=== PATIENT | male | born 1970 | race American Indian/Alaskan Native ===

== ENCOUNTER 2018-04-28 18:36 | Inpatient (IN) | payer OTHER ==
[~2018-04-28] VITALS: Ht 167.6 cm; Wt 59.6 kg
[2018-04-28 20:05] LABS: ABSOLUTE BASOPHIL COUNT 0 /CUMM (0.0-0.2); ABSOLUTE EOSINOPHIL COUNT 0 /CUMM (0.0-0.7); ABSOLUTE GRANULOCYTE CT 5.2 /CUMM (1.4-6.5); ABSOLUTE LYMPH COUNT 1.4 /CUMM (1.2-3.4); ABSOLUTE MONOCYTE COUNT 0.4 /CUMM (0.10-0.60); BASOPHIL % 0.2 % (0.0-2.0); EOSINOPHIL % 0.3 % (0-5); GRANULOCYTE % 73.4 % (42.2-75.2); HEMATOCRIT 35.5 % (42-52); MEAN CORPUSCULAR HGB CONC 33.1 G/DL (33.0-37.0); MEAN CORPUSCULAR VOLUME 96.7 FL (80.0-94.0); PLATELET COUNT 82 /CUMM (130-400); RBC DISTRIBUTION WIDTH 16.6 % (11.5-14.5); RED BLOOD CELL CT 3.67 /CUMM (4.70-6.10); WHITE BLOOD CELL COUNT 7.1 /CUMM (4.8-10.8)
[2018-04-28] MEDS ORDERED: PANTOPRAZOLE SO40 M1 PO (20:05)
[2018-04-28] MEDS ORDERED: SYNTHROID175 MCG PO (20:06)
[2018-04-28] MEDS ORDERED: THERAPEUTIC-M1 EAC2 PO (20:06)
[2018-04-28] MEDS ORDERED: VITAMIN B-150 M1 PO (20:13)
[2018-04-28 20:18] LABS: PTT 41 SEC (25-37)
--- NOTE | 2018-04-28 22:18 | CT SCAN REPORT ---
EXAMINATION: CT ABDOMEN AND PELVIS WITH CONTRAST CLINICAL INFORMATION: Hepatitis C. Alcoholism with abdominal pain. COMPARISON: None TECHNIQUE: Multidetector volumetric imaging was performed of the abdomen and pelvis following IV administration of 95 mL of Optiray 320 intravenous contrast. Sagittal and coronal reformatted images were obtained on the technologist's workstation. DLP: 296.5 mGy-cm FINDINGS: LUNG BASES: The visualized lung bases are unremarkable. LIVER, GALLBLADDER, AND BILIARY TREE: Relative hypoattenuation of the hepatic parenchyma is consistent with steatosis. More focal areas of hypoattenuation around the gallbladder fossa are consistent with more pronounced steatosis. No suspicious lesions are identified. There is relative heterogeneous enhancement of the hepatic parenchyma which is likely due to underlying hepatocellular disease. No significant capsular nodularity is appreciated. The liver measures 20 cm craniocaudal, borderline enlarged. No biliary ductal dilatation. The gallbladder is unremarkable with no evidence of radiopaque gallstones, gallbladder wall thickening, or obvious pericholecystic inflammatory changes. PANCREAS: Unremarkable. SPLEEN: Unremarkable. ADRENAL GLANDS: Unremarkable. KIDNEYS AND URETERS: The kidneys are normal in size, shape, and attenuation. No hydronephrosis or hydroureter. A 4 mm calculus is present in a calyx at the left upper pole. No additional calculi. No perinephric stranding. BLADDER: Unremarkable. GASTROINTESTINAL TRACT: Stomach, small bowel, and colon are normal in caliber. Bowel wall thickening is present within the colon diffusely, most pronounced in the cecum, ascending colon, and proximal transverse colon. There is associated mural hypoattenuation and surrounding fat stranding. A small to moderate volume of intraperitoneal free fluid is present in the right upper quadrant in the perihepatic location. A small volume of free fluid is present along the right paracolic gutter and central pelvis. This fluid appears relatively simple with neither an enhancing rim nor with significant internal debris. No intraperitoneal free air. Hyperenhancement of the gastric mucosa is noted. ABDOMINAL WALL: No significant hernia is appreciated. LYMPH NODES: Normal. VASCULAR: Abdominal aorta and its branch vessels are patent and normal in caliber. The portal vasculature is patent without significant collaterals. PELVIC VISCERA: The prostate and seminal vesicles are unremarkable. OSSEOUS STRUCTURES: Mild/moderate multilevel degenerative disc disease present in the lumbar spine. No fracture or malalignment. There is mild osteophyte arthritis in the hips. IMPRESSION: 1. Hepatic hypoattenuation with heterogeneous enhancement, consistent with hepatic steatosis and underlying hepatocellular disease. Ill-defined regions of hypoattenuation around the gallbladder fossa most likely correspond to areas of more pronounced focal fatty infiltration. History of hepatitis C infection, consider follow-up MRI with and without contrast for more definitive characterization on a nonemergent basis. 2. Small glqyf-ox-uaupunya volume of simple appearing intraperitoneal free fluid, most notably in a perihepatic and central pelvic distribution confidentially due to portal hypertension. 3. Diffuse colonic wall thickening, most pronounced the right hemicolon, potentially due to portal hypertension. Infectious colitis or spontaneous bacterial peritonitis can also produce this appearance.
--- NOTE | 2018-04-28 22:29 | ED GENERAL ADULT ---
History of Present Illness General Chief Complaint: General Adult Stated Complaint: "I FEEL LIKE MY BODY SHUTTING DOWN" Source: patient, family, old records, Epic Exam Limitations: no limitations Vital Signs & Intake/Output Vital Signs & Intake/Output Vital Signs Date Time Temp Pulse Resp B/P B/P Pulse O2 O2 Flow FiO2 Mean Ox Delivery Rate 04/29 0107 98.1 70 18 92/73 96 Room Air 04/29 0042 97.7 66 20 104/56 04/29 0041 97.7 66 20 104/56 99 Room Air 04/28 2240 98.5 68 18 103/70 04/28 2202 98.5 68 18 103/70 95 Room Air 04/28 1953 97 Room Air 04/28 1945 98.4 88 18 118/70 95 Room Air 04/28 1844 97.4 98 20 134/95 96 Room Air ED Intake and Output 04/29 0000 04/28 1200 Intake Total Output Total Balance Patient 130 lb Weight Allergies Coded Allergies: No Known Allergies (04/28/18) Reconcile Medications Levothyroxine Sodium (Synthroid) 175 MCG TABLET 1 TAB PO DAILY THYROID ( Reported) Multivit,Calc,Mins/Iron/Folic (Therapeutic-M Tablet) 9 MG IRON-400 MCG TABLET 1 TAB PO DAILY SUPPLEMENT (Reported) Pantoprazole Sodium 40 MG TABLET.DR 1 TAB PO DAILY GI (Reported) Thiamine HCl (Vitamin B-1) (Unknown Strength) TABLET (Unknown Dose) PO DAILY SUPPLEMENT (Reported) Triage Note: 47 YEAR OLD MALE TO ER WITH COMPLAINTS OF FEELING ILL, 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 STATES THAT HE ALSO GOES TO [facility] IN [place] AND IS SUPOSSED TO BE ON 100 MG A DAY BUT THEY HAVE NOT MEDICATED HIM IN 4 DAYS DUE TO HE HAD ETOH ON BOARD. PT WEEPY AT TRIAGE, ALSO STATES THAT HE HAS HEP C. Triage Nurses Notes Reviewed? yes Onset: Last week Duration: week(s):, constant, continues in ED Timing: recent history Injury Environment: home Severity: moderate, severe No Modifying Factors: none HPI: Patient presents with increasing abdominal distention dealing with his eyes decreased appetite weakness diarrhea and continued alcohol abuse. He denies fever chills chest pain cough shortness of breath nausea vomiting headache dysuria rash bleeding. Past History Travel History Traveled to [place] past 21 day No Medical History Any Pertinent Medical History? 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 No Review of Systems Review of Systems Constitutional: Reports: see HPI, malaise, weakness. EENTM: Reports: see HPI, icterus. Respiratory: Reports: no symptoms. Cardiovascular: Reports: no symptoms. GI: Reports: see HPI, bloating. Genitourinary: Reports: no symptoms. Musculoskeletal: Reports: no symptoms. Skin: Reports: see HPI. Neurological/Psychological: Reports: no symptoms. Hematologic/Endocrine: Reports: no symptoms. Immunologic/Allergic: Reports: no symptoms. All Other Systems: Reviewed and Negative Physical Exam Physical Exam General Appearance: alert, awake, anxious, mild distress Head: atraumatic, normal appearance Eyes: Bilateral: normal appearance, PERRL, EOMI. Ears, Nose, Throat: normal pharynx, normal ENT inspection, hearing grossly normal Neck: normal inspection, supple, full range of motion, no midline tenderness Respiratory: normal breath sounds, chest non-tender, no respiratory distress, quiet respiration, lungs clear Cardiovascular: regular rate/rhythm, normal peripheral pulses, norml femoral pulses equa Peripheral Pulses: 4+ carotid (R), 4+ carotid (L) Gastrointestinal: normal bowel sounds, soft, non-tender, abnormal bowel sounds, hepatomegaly Back: normal inspection, normal range of motion Extremities: normal inspection, normal capillary refill, normal range of motion, no edema Neurologic/Psych: no motor/sensory deficits, awake, alert, oriented x 3, normal gait, normal mood/affect, 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 Skin: intact, warm/dry Lymphatic: no anterior cervical charlene Core Measures ACS in differential dx? No CVA/TIA Diagnosis: No Sepsis Present: No Sepsis Focused Exam Completed? No Progress Differential Diagnoses I considered the following diagnoses in my evaluation of the patient: Alcohol intoxication cirrhosis peritonitis electrolyte abnormality Plan of Care: Orders Procedure Date/time Status Regular Diet 04/29 B Active PHOSPHORUS 04/29 0600 Active MAGNESIUM 04/29 0600 Active CBC WITHOUT DIFFERENTIAL 04/29 0600 Active BASIC ELECTROLYTES PLUS BUN&CR 04/29 0600 Active Seizure Precautions 04/29 0340 Active C.DIFFICILE 04/29 0226 Active Weight 04/29 0142 Active Vital Signs 04/29 0142 Active Teach/Educate 04/29 014 Active Pain Treatment and Response 04/29 014 Active Nutritional Intake, Monitor 04/29 014 Active Isolation 04/29 014 Active Intake & Output 04/29 014 Active Patient Care Conference 04/29 0142 Active Activity/Ambulation 04/29 014 Active US-LIMITED ABDOMEN 04/29 UNK Active CIWA 04/29 UNK Complete PSYCHIATRIC CONSULT 04/29 UNK Active Patient Data 04/28 2327 Active OXYGEN SETUP (GEN) 04/28 224 Active Saline Lock 04/28 224 Active Admit to inpatient 04/28 224 Active Vital Signs 04/28 2247 Active Activity/Ambulation 04/28 224 Active Code Status 04/28 2247 Active TOTAL TRIODOTHYROXINE 04/28 1954 Complete FREE T4 04/28 1954 Complete Intake & Output 04/28 1953 Active CIWA 04/28 1929 Active URINE DRUG SCREEN FOR ER ONLY 04/28 1929 Complete URINALYSIS 04/28 1929 Complete TSH REFLEX 04/28 1929 Complete PARTIAL THROMBOPLASTIN TIME 04/28 1929 Complete PROTHROMBIN TIME 04/28 1929 Complete AMMONIA 04/28 1929 Complete ETHANOL 04/28 1929 Complete COMPREHENSIVE METABOLIC PANEL 04/28 1929 Complete CBC WITHOUT DIFFERENTIAL 04/28 1929 Complete Current Medications Sig/Michelle Start time Last Medication Dose Stop Time Status Admin Multivitamins 1 TAB DAILY 04/29 0900 AC (Theragran Vitamins) Levothyroxine Sodium 0.175 MG DAILY AC 04/29 0700 UNVr (Synthroid) Ondansetron HCl 4 MG Q6P PRN 04/29 0400 AC (Zofran) Cyanocobalamin/ 1 BAG DAILY 04/29 0300 AC 04/29 Thiamine/Pyridoxine 0328 (Vitamin in I.V.) Dextrose/Water 1,000 ML (D5W 1000) Lactulose 20 GM BID 04/29 0200 AC (Enulose 20GM/30ML) Laboratory Tests 04/28/181956: Urine Opiates Screen > 4000.00 H, Methadone Screen > 735 H, Barbiturate Screen < 60, Ur Phencyclidine Scrn 6.30, Amphetamines Screen < 100, U Benzodiazepines Scrn < 85, Urine Cocaine Screen < 50, Urine Cannabis Screen > 80.00 H, Urine Color YEL, Urine Clarity CLEAR, Urine pH 7.0, Ur Specific [place] <= 1.005, Urine Protein NEG, Urine Ketones NEG, Urine Nitrite NEG, Urine Bilirubin NEG, Urine Urobilinogen 2.0 H, Ur Leukocyte Esterase NEG, Ur Microscopic EXAM NOT REQUIRED, Urine Hemoglobin NEG, Urine Glucose NEG 04/28/181953: Anion Gap 8, Estimated GFR > 60, BUN/Creatinine Ratio 5.0 L, Glucose 69, Calcium 7.4 L, Total Bilirubin 2.0 H, AST 231 H, ALT 76 H, Alkaline Phosphatase 202 H, Ammonia 44 H, Total Protein 8.1, Albumin 3.5, Globulin 4.6 H, Albumin/Globulin Ratio 0.8 L, Free T4 0.73, Total T3 0.68 L, TSH &T3 &Free T4 Intrp 44.900 H, PT 19.0 H, INR 1.73 H, APTT 41 H, CBC w Diff NO MAN DIFF REQ, RBC 3.67 L, MCV 96.7 H, MCH 32.0 H, MCHC 33.1, RDW 16.6 H, MPV 9.0, Gran % 73.4, Lymphocytes % 20.2 L, Monocytes % 5.9, Eosinophils % 0.3, Basophils % 0.2, Absolute Granulocytes 5.2, Absolute Lymphocytes 1.4, Absolute Monocytes 0.4, Absolute Eosinophils 0, Absolute Basophils 0, Serum Alcohol 262.0 Microbiology 04/29 226 STOOL: Clostridium difficile Toxin A & B - COLB Diagnostic Imaging: Viewed by Me: CT Scan. Discussed w/RAD: CT Scan. Radiology Impression: 1. Hepatic hypoattenuation with heterogeneous enhancement, consistent with hepatic steatosis and underlying hepatocellular disease. Ill- defined regions of hypoattenuation around the gallbladder fossa most likely correspond to areas of more pronounced focal fatty infiltration. History of hepatitis C infection, consider follow-up MRI with and without contrast for more definitive characterization on a nonemergent basis. 2. Small [id number]-[id number] volume of simple appearing intraperitoneal free fluid, most notably in a perihepatic and central pelvic distribution confidentially due to portal hypertension. 3. Diffuse colonic wall thickening, most pronounced the right hemicolon, potentially due to portal hypertension. Infectious colitis or spontaneous bacterial peritonitis can also produce this appearance. Initial ED EKG: none Departure Departure Time of Disposition: 2247 Disposition: STILL A PATIENT Condition: Fair Clinical Impression Primary Impression: Hypothyroidism in adult Secondary Impressions: Alcohol dependence with intoxication, Hepatitis C virus infection, Hyperammonemia, Hypocalcemia Referrals: Unknown (PCP/Family) Departure Forms: Customer Survey General Discharge Information Admission Note Spoke With: Buck Lopez MD Documentation of Exam: Documentation of any treatments & extenuating circumstances including Concerns Regarding Discharge (functional status, medication knowledge or non-compliance, living conditions, etc.) that warrant an admission rather than observation: GI evaluation endocrinology evaluation serial lab exam electrolyte repletion serial CIWA medication adjustment physical therapy continuing care discharge planning Critical Care Note Critical Care Note Critical Care Time: non-applicable
[2018-04-28 22:40] VITALS: BP 103/70
[2018-04-29] VITALS (7 sets, daily range): BP systolic 92–162; BP diastolic 56–82
--- NOTE | 2018-04-29 00:13 | History & Physical ---
Artie LITTLE,Yony 04/29/18 0013: General Information and HPI Statement: I have seen and personally examined MARGARITO HOLDEN and documented this H&P. The patient is a 47 year old M who presented with a patient stated chief complaint of ["I FEEL LIKE MY BODY SHUTTING DOWN"]. Source of Information: patient, family, old records Exam Limitations: no limitations History of Present Illness: Patient is a 47-year-old male presented with chief complaints of"I FEEL LIKE MY BODY SHUTTING DOWN". Patient is having history of substance use disorder including alcohol, opioid, heroine, methadone, cocaine and was following the [employer] [facility]. His last drink was just before arrival. He was also complaining of distention abdomen, yellow discoloration of the eye and generalized weakness. He was not given methadone since 4 days because he was drinking alcohol. He is on 100 mg of methadone daily. Alcohol use history -he started drinking alcohol since 5 years as he was stressing out. He wanted to get rid of the all substance he used in the past including cocaine. He drinks around 1-2 pins of vodka daily. Recently his amount of alcohol intake has been increased. He underwent multiple detox with failed. He was admitted to the year and was told that his ammonia level is high in 2017, he had episode of seizure due to alcohol use in 2016. His last drink was early in the morning. He drank around one-pint of vodka. History of hepatitis C secondary to IV drug abuse-he was diagnosed as hepatitis C which affected his liver. He was not treated with Harvoni as he is continued to drink alcohol. He had upper GI endoscopy in the past but denies for any esophageal varices. Abdominal distention and generalized abdominal pain-since last 1-1/2 weeks he was complaining of pain in the belly associated with nausea and vomiting. It is constant in nature and worse by taking breath in and out. He denies any association with eating. He is also complaining of loose bowel movement around 4-5 times in a day. Occasionally he does see that in the stool. He denies for any weight loss. Hodgkin's lymphoma since childhood-he was treated with radiotherapy leading to loss of the muscle mass especially in the neck and the face. History of thyroidectomy -he was having difficulty in the swallowing and change in the voice so he was get evaluated at the year and was told that he was has had some cancer cells in the thyroid. He did had thyroidectomy in 1999. He was having hypothyroidism after that and currently on Synthyroid 175 mcg daily. He is noncompliant with the medication and has not been taken since last couple of days. History of Anal prolapse treated by the surgery. His primary care provider is at [facility]. History of smoking -he was smoking since last 30 years around 1-1/2 pack per day. He had multiple failed attempts to quit. He was incarcerated multiple times because of the rubbing and drug abuse. Allergies/Medications Allergies: Coded Allergies: No Known Allergies (04/28/18) Home Med list Levothyroxine Sodium (Synthroid) 175 MCG TABLET 1 TAB PO DAILY THYROID ( Reported) Multivit,Calc,Mins/Iron/Folic (Therapeutic-M Tablet) 9 MG IRON-400 MCG TABLET 1 TAB PO DAILY SUPPLEMENT (Reported) Pantoprazole Sodium 40 MG TABLET.DR 1 TAB PO DAILY GI (Reported) Thiamine HCl (Vitamin B-1) (Unknown Strength) TABLET (Unknown Dose) PO DAILY SUPPLEMENT (Reported) Past History Travel History Traveled to [place] past 21 day No Medical History Neurological: NONE EENT: NONE Cardiovascular: NONE Respiratory: NONE Gastrointestinal: GERD Hepatic: hepatitis C Musculoskeletal: NONE Psychiatric: alcohol dependence, opioid dependence Endocrine: hypothyroidism Blood Disorders: NONE Cancer(s): hodgkins lymphoma Surgical History Surgical History: none Past Family/Social History Psychosocial History ETOH Use: alcoholic Illicit Drug Use: denies illicit drug use, METHADONE PROGRAM Review of Systems Review of Systems Constitutional: Reports: no symptoms, malaise, weakness. Cardiovascular: Reports: no symptoms. Respiratory: Reports: no symptoms. GI: Reports: abdominal pain, bloating, diarrhea, distention, nausea, changes in stool, vomiting. Genitourinary: Reports: dysuria. Skin: Reports: jaundice. Exam & Diagnostic Data Last 24 Hrs of Vital Signs/I&O Vital Signs Date Time Temp Pulse Resp B/P B/P Pulse O2 O2 Flow FiO2 Mean Ox Delivery Rate 04/29 0107 98.1 70 18 92/73 96 Room Air 04/29 0042 97.7 66 20 104/56 04/29 0041 97.7 66 20 104/56 99 Room Air 04/28 2240 98.5 68 18 103/70 04/28 2202 98.5 68 18 103/70 95 Room Air 04/28 1953 97 Room Air 04/28 194 98.4 88 18 118/70 95 Room Air 04/28 1844 97.4 98 20 134/95 96 Room Air Intake & Output 04/29 0800 04/29 0000 04/28 1600 Intake Total Output Total Balance Patient 58.967 kg Weight Physical Exam General Appearance Alert, Oriented X3, Cooperative Skin No Rashes, No Breakdown Neck Supple, No JVD Cardiovascular Normal S1, Normal S2 Lungs Clear to Auscultation, Normal Air Movement Abdomen diatended, tender generalized, palpable and tender hepatomegaly Neurological Normal Speech Extremities mild bilateral lower leg edema Vascular Normal Pulses, Pulses Symmetrical Last 24 Hrs of Labs/Iain: Laboratory Tests 04/28/181956: Urine Opiates Screen > 4000.00 H, Methadone Screen > 735 H, Barbiturate Screen < 60, Ur Phencyclidine Scrn 6.30, Amphetamines Screen < 100, U Benzodiazepines Scrn < 85, Urine Cocaine Screen < 50, Urine Cannabis Screen > 80.00 H, Urine Color YEL, Urine Clarity CLEAR, Urine pH 7.0, Ur Specific [place] <= 1.005, Urine Protein NEG, Urine Ketones NEG, Urine Nitrite NEG, Urine Bilirubin NEG, Urine Urobilinogen 2.0 H, Ur Leukocyte Esterase NEG, Ur Microscopic EXAM NOT REQUIRED, Urine Hemoglobin NEG, Urine Glucose NEG 04/28/181953: Anion Gap 8, Estimated GFR > 60, BUN/Creatinine Ratio 5.0 L, Glucose 69, Calcium 7.4 L, Total Bilirubin 2.0 H, AST 231 H, ALT 76 H, Alkaline Phosphatase 202 H, Ammonia 44 H, Total Protein 8.1, Albumin 3.5, Globulin 4.6 H, Albumin/Globulin Ratio 0.8 L, Free T4 0.73, Total T3 0.68 L, TSH &T3 &Free T4 Intrp 44.900 H, PT 19.0 H, INR 1.73 H, APTT 41 H, CBC w Diff NO MAN DIFF REQ, RBC 3.67 L, MCV 96.7 H, MCH 32.0 H, MCHC 33.1, RDW 16.6 H, MPV 9.0, Gran % 73.4, Lymphocytes % 20.2 L, Monocytes % 5.9, Eosinophils % 0.3, Basophils % 0.2, Absolute Granulocytes 5.2, Absolute Lymphocytes 1.4, Absolute Monocytes 0.4, Absolute Eosinophils 0, Absolute Basophils 0, Serum Alcohol 262.0 Assessment/Plan Assessment: Patient is a 47-year-old male presented with chief complaints of"I FEEL LIKE MY BODY SHUTTING DOWN". Blood workup-hemoglobin 11.7, hematocrit 35.5, platelet count 82,000, MCV 96.7, serum sodium 140, potassium 3.4, chloride 99, [id number], anion gap 8, BUN 3, creatinine 0.6, glucose 69, calcium 7.4, total bilirubin 2.0, AST 231, ALT 76 , alkaline phosphatase 202, ammonia 44, TSH 44.90, total T3 0.68, urine analysis -ketones negative, U tox-opiates, methadone, cannabis positive. Serum alcohol level 262. CT scan of abdomen and pelvis- 1. Hepatic hypoattenuation with heterogeneous enhancement, consistent with hepatic steatosis and underlying hepatocellular disease. Ill-defined regions of hypoattenuation around the gallbladder fossa most likely correspond to areas of more pronounced focal fatty infiltration. History of hepatitis C infection, consider follow-up MRI with and without contrast for more definitive characterization on a nonemergent basis. 2. Small [id number] volume of simple appearing intraperitoneal free fluid , most notably in a perihepatic and central pelvic distribution confidentially due to portal hypertension. 3. Diffuse colonic wall thickening, most pronounced the right hemicolon, potentially due to portal hypertension. Infectious colitis or spontaneous bacterial peritonitis can also produce this appearance. Problem list - Substance use disorder - alcohol Decompensated cirrhosis along with ascites, portal hypertension, high ammonia level, evidence of hepatocellular disease on the CT scan of the abdomen History of alcohol use disorder, alcoholic hepatitis, hepatic steatosis History of untreated hep C Severe hypothyroidism Normocytic anemia Thrombocytopenia Hypokalemia -3.4 Metabolic alkalosis-diarrhea should be ruled out. Assessment and plan- * We will admit the patient to general medicine floor * We will obtain GI consult for future management and plan * We should think about paracentesis if needed to rule out SBP * Right upper quadrant ultrasound to rule out any GB stone * Psychiatric consult for substance use disorder * CIWA * Ativan according to the sliding scale * stool fo C diff * Patient was on Synthyroid 175 mcg,continue same dose. We will plan to check the TSH after 48 hours. * We will obtain endocrinology consult for further evaluation and management. * We will obtain psychiatric consult for further evaluation and management * We supplemented potassium. Will follow magnesium and phosphorus * Please get the records from the [facility] * Please confirm from the [facility] about the methadone dose * CODE STATUS-full code * DVT prophylaxis-ALP S, do not use heparin as the patient has thrombocytopenia * Diet-regular diet with low-sodium As Ranked By This Provider Problem List: 1. Alcohol dependence with intoxication 2. Hyperammonemia 3. Hepatitis C virus infection 4. Hypothyroidism in adult Core Measures/Misc (05/02) Acute Coronary Syndrome ACS Diagnosis: No Congestive Heart Failure Congestive Heart Failure Diagnosis No Cerebrovascular Accident CVA/TIA Diagnosis: No VTE (View Protocol) VTE Risk Factors Age>40 No Mechanical VTE Prophylaxis d/t N/A MechProphylax Ordered No VTE Pharm Prophylaxis d/t Other Comment: low platelet Sepsis (View protocol) Sepsis Present: No If YES complete Sepsis Event Note If YES complete Sepsis Event Note Jessica LITTLE,Buck 04/29/18 0338: Core Measures/Misc (05/02) Sepsis (View protocol) If YES complete Sepsis Event Note If YES complete Sepsis Event Note Attending MD Review Statement Attending Statement Attending MD Statement: examined this patient, discuss w/resident/PA/CHARGE ACCOUNT CLERK, agreed w/resident/PA/CHARGE ACCOUNT CLERK, discussed with family, reviewed EMR data (avail), discussed with nursing, amended to note Attending Assessment/Plan: Patient seen and examined. Medical history and examination is as documented by the medical practice manager above. He has quite a number of issues going on. His complaints of malaise appears to be secondary to his severe hypothyroidism. He admits noncompliance with his medication regimen. we'll continue him on Synthroid 175 g daily and follow-up with endocrinology service. He complains of abdominal discomfort predominantly in the right upper quadrant. These may be related to his transaminitis most likely alcohol induced. . Reports loose stools on occasion however sometimes he states that when he goes to the bathroom is unable to move his bowels. CT scan is suggestive of possible colitis. He is afebrile. He has no leukocytosis. CT scan also shows evidence of small to moderate sinusitis. On examination abdomen is tender predominantly in the right upper quadrant. There is no rebound. There is no guarding. Severe hepatomegaly. Again he has no other clinical evidence of an infectious process present making SBP less likely within the differential. If diarrhea and cramping persists consider GI consultation. Confirm Methadone regimen before resuming. I agree with the management plan as outlined by the resident above.
--- NOTE | 2018-04-29 03:38 | Admission Certification ---
Admission Certification Certification Statement - As attending physician, I certify that at the time of - admission, based on clinical presentation, severity of - symptoms, need for further diagnostic testing and - therapeutic interventions, and risk of adverse outcomes - without in-hospital treatment, in my clinical assessment, - this patient requires an acute hospital stay for a minimum - of two nights or longer. I have also considered psychsocial - factors such as support system, advanced age, financial - issues, cognitive issues, and failed out-patient treatments, - past re-admission history, safety of patient, and lack of - compliance as applicable. Specific rationale supporting this admission is: Patient is being hospitalized for further management of his abdominal pain and hypothyroidism
[2018-04-29 07:52] LABS: ABSOLUTE BASOPHIL COUNT 0 /CUMM (0.0-0.2); ABSOLUTE EOSINOPHIL COUNT 0.1 /CUMM (0.0-0.7); ABSOLUTE LYMPH COUNT 1.4 /CUMM (1.2-3.4); ABSOLUTE MONOCYTE COUNT 0.4 /CUMM (0.10-0.60); BASOPHIL % 0.6 % (0.0-2.0); EOSINOPHIL % 0.9 % (0-5); GRANULOCYTE % 68.9 % (42.2-75.2); HEMATOCRIT 36.3 % (42-52); MEAN CORPUSCULAR HGB 32.7 PG (27.0-31.0); MEAN CORPUSCULAR HGB CONC 33.6 G/DL (33.0-37.0); MEAN CORPUSCULAR VOLUME 97.1 FL (80.0-94.0); MEAN PLATELET VOLUME 9.5 FL (7.4-10.4); RBC DISTRIBUTION WIDTH 16.9 % (11.5-14.5); RED BLOOD CELL CT 3.74 /CUMM (4.70-6.10); WHITE BLOOD CELL COUNT 5.8 /CUMM (4.8-10.8)
[2018-04-29 09:06] LABS: PLATELET COUNT 82 /CUMM (130-400)
--- NOTE | 2018-04-29 13:08 | ULTRASOUND REPORT ---
EXAMINATION: US ABDOMEN LIMITED CLINICAL INFORMATION: Alcoholic hepatitis. Evaluate for gallstone. COMPARISON: CT abdomen and pelvis, 04/28/2018 TECHNIQUE: Real-time imaging of the right upper quadrant abdominal viscera. FINDINGS: PANCREAS: The majority of the pancreas is obscured by bowel gas. Visualized portion of the pancreatic head is normal. LIVER: Liver parenchyma is diffusely hyperechoic and there is slightly nodular contour of the liver surface. No evidence of focal hepatic lesion or intrahepatic bile duct dilatation. GALLBLADDER: Gallbladder is moderately distended and contains minimal, mobile sludge. No cholelithiasis. No gallbladder wall edema. COMMON BILE DUCT: Normal in caliber measuring 0.3 cm in diameter. RIGHT KIDNEY: Normal. No hydronephrosis. No renal calculi or focal parenchymal lesions. The kidney measures 9.7 cm in maximum dimension. FREE FLUID: Small amount of ascitic fluid is seen in the upper abdomen IMPRESSION: - Liver is diffusely hyperechoic from steatosis or steatohepatitis, and the liver contour is slightly nodular, which raises suspicion for cirrhosis. However, no focal lesions are seen. - Gallbladder contains minimal, mobile sludge. - Ascites
--- NOTE | 2018-04-29 13:30 | PN- Att Addend ---
Attending Addendum Attending Brief Note S: The patient was seen and chart reviewed. Still with nausea/vomiting and abdominal pain. Received Ativan 0.5 mg IV this morning per nursing. O: Vital Signs Date Time Temp Pulse Resp B/P B/P Pulse O2 O2 Flow FiO2 Mean Ox Delivery Rate 04/29 0645 98.2 67 18 102/65 96 Room Air Current Medications Sig/Michelle Start time Last Medication Dose Route Stop Time Status Admin Calcium Gluconate 0 .STK-MED ONE 04/29 0001 DC IV Calcium Gluconate 1 GM ONCE ONE 04/28 2300 DC 04/29 Sodium Chloride 100 ML IV 04/28 2359 0003 Cyanocobalamin/ 1 BAG DAILY 04/30 0900 AC Thiamine/Pyridoxine IV Dextrose/Water 1,000 ML Cyanocobalamin/ 1 BAG DAILY 04/29 0300 DC 04/29 Thiamine/Pyridoxine IV 0328 Dextrose/Water 1,000 ML Dicyclomine HCl 20 MG 4 TIMES/DAY PRN 04/29 1245 AC PO Lactulose 20 GM BID 04/29 0200 AC 04/29 PO 0805 Levothyroxine Sodium 0.125 MG DAILY AC 04/29 0700 DC PO Levothyroxine Sodium 0.2 MG DAILY AC 04/29 0700 DC PO Levothyroxine Sodium 0.175 MG DAILY AC 04/29 0700 AC 04/29 PO 0903 Levothyroxine Sodium 200 MCG ONCE ONE 04/28 2300 DC 04/28 IV 04/28 2301 2356 Lorazepam 1 MG Q6 04/29 1200 AC 04/29 PO 1210 Lorazepam 0 Q1P PRN 04/29 0815 AC 04/29 IV 0851 Magnesium Sulfate 1 GM Q2H 04/29 0915 DC 04/29 Dextrose/Water 100 ML IV 04/29 1314 1211 Multivitamins 1 TAB DAILY 04/29 0900 AC 04/29 PO 0805 Omeprazole 40 MG DAILY AC 04/29 1022 AC 04/29 PO 1210 Ondansetron HCl 4 MG Q6P PRN 04/29 0400 AC 04/29 PO 1226 Potassium Chloride 40 MEQ ONCE ONE 04/29 1300 DC PO 04/29 1301 Potassium Chloride 0 .STK-MED ONE 04/29 0458 DC PO Potassium Chloride 40 MEQ ONCE ONE 04/29 0130 DC 04/29 PO 04/29 0131 0602 Thiamine HCl 100 MG ONCE ONE 04/29 300 DC 04/29 Sodium Chloride 50 ML IV 04/29 6899 0326 Physical Exam: HEENT: eyes- PERRLA raymond- moist mucosa Chest: clear Cor: RRR nl S1, S2 Abd: BS+, soft, mild generalized tenderness more epigastric/RUQ Ext: tr edema Labs/Tests: Laboratory Tests 04/29/18 0605: Anion Gap 10, Estimated GFR > 60, BUN/Creatinine Ratio 6.7 L, Phosphorus 4.2, Magnesium 0.7 *L, Total Bilirubin 1.6 H, Direct Bilirubin 0.9 H, AST 226 H, ALT 71, Alkaline Phosphatase 215 H, Total Protein 7.8, Albumin 3.4 L, Lipase 215, Free T4 1.41, CBC w Diff NO MAN DIFF REQ, RBC 3.74 L, MCV 97.1 H, MCH 32.7 H, MCHC 33.6, RDW 16.9 H, MPV 9.5, Gran % 68.9, Lymphocytes % 23.5, Monocytes % 6.1, Eosinophils % 0.9, Basophils % 0.6, Absolute Granulocytes 4.0, Absolute Lymphocytes 1.4, Absolute Monocytes 0.4, Absolute Eosinophils 0.1, Absolute Basophils 0, Acetaminophen < 10.0 L 04/28/181956: Urine Opiates Screen > 4000.00 H, Methadone Screen > 735 H, Barbiturate Screen < 60, Ur Phencyclidine Scrn 6.30, Amphetamines Screen < 100, U Benzodiazepines Scrn < 85, Urine Cocaine Screen < 50, Urine Cannabis Screen > 80.00 H, Urine Color YEL, Urine Clarity CLEAR, Urine pH 7.0, Ur Specific [place] <= 1.005, Urine Protein NEG, Urine Ketones NEG, Urine Nitrite NEG, Urine Bilirubin NEG, Urine Urobilinogen 2.0 H, Ur Leukocyte Esterase NEG, Ur Microscopic EXAM NOT REQUIRED, Urine Hemoglobin NEG, Urine Glucose NEG 04/28/181953: Anion Gap 8, Estimated GFR > 60, BUN/Creatinine Ratio 5.0 L, Glucose 69, Calcium 7.4 L, Total Bilirubin 2.0 H, AST 231 H, ALT 76 H, Alkaline Phosphatase 202 H, Ammonia 44 H, Total Protein 8.1, Albumin 3.5, Globulin 4.6 H, Albumin/Globulin Ratio 0.8 L, Free T4 0.73, Total T3 0.68 L, TSH &T3 &Free T4 Intrp 44.900 H, PT 19.0 H, INR 1.73 H, APTT 41 H, CBC w Diff NO MAN DIFF REQ, RBC 3.67 L, MCV 96.7 H, MCH 32.0 H, MCHC 33.1, RDW 16.6 H, MPV 9.0, Gran % 73.4, Lymphocytes % 20.2 L, Monocytes % 5.9, Eosinophils % 0.3, Basophils % 0.2, Absolute Granulocytes 5.2, Absolute Lymphocytes 1.4, Absolute Monocytes 0.4, Absolute Eosinophils 0, Absolute Basophils 0, Serum Alcohol 262.0 Microbiology 04/29 0850 STOOL: Clostridium difficile Toxin A & B - COMP Abdominal US: IMPRESSION: - Liver is diffusely hyperechoic from steatosis or steatohepatitis, and the liver contour is slightly nodular, which raises suspicion for cirrhosis. However, no focal lesions are seen. - Gallbladder contains minimal, mobile sludge. - Ascites Impression/Plan: #Abdominal Pain- most likely multifactorial due to alcoholic gastritis, hepatitis (alcoholic and Hep C), ascites. Admit team felt not likely to be SBP, however cannot exclude. Plan: Agree with treatment of gastritis/etc. and follow. GI input regarding potential paracentesis. Lipase/amylase added to admit labs. Trend LFT's. #Gastritis- as above, the patient presents with vomiting, etc. Plan: PPI as noted. Zofran for nausea, will follow. #EtOH/Opioid Withdrawal- the admit note suggested restart Methadone, however the patient was discharged from his Methadone clinic 04/24 and thus unable to return. He has been off of Methadone since 04/24, so no need for taper. Suspect with positive urine that he has taken street opioids. Plan: No Methadone. Would treat with usual withdrawal meds- Ativan/MVI/Thiamine/ folate for EtOH and Clonidine, Bentyl Hydroxyzine, Baclofen for opioids. #Cirrhosis/Hep C/Abnormal LFT's- abd US showing some sludge in GP. No encephalopathy noted. Most likely secondary to EtOH hepatitis. Plan: Would trend LFT's. As above, consider paracentesis depending on GI follow- up. #Hypomagnesemia- secondary to poor nutrition. Plan: Replete and follow. #Hypothyroid- secondary to prior thyroidectomy for ca. Has been non-compliant. Not contributing to current symptoms. Plan: Would start his usual dose Levothyroxine 175 mcg daily and check Free T4. Would re-check Free T4 in 4-5 days and f/u TSH in 6 weeks. #Anemia/Thrombocytopenia- secondary to alcohol. No clinical bleeding at present. Plan: Will trend H/H and count. No heparin/Lovenox.
--- NOTE | 2018-04-29 17:13 | Event Note ---
Event Note Event Note: pt has supratherapeutic INR and thrombocytopenia will do ALP no heparin
--- NOTE | 2018-04-29 19:16 | Cons- Gastroenterology ---
General Information and HPI Consulting Request Date of Consult: 04/29/18 Requested By: Pj Del Cid MD Reason for Consult: Liver disease Abdominal pain Allergies/Medications Allergies: Coded Allergies: No Known Allergies (04/28/18) Home Med List: Levothyroxine Sodium (Synthroid) 175 MCG TABLET 1 TAB PO DAILY THYROID ( Reported) Multivit,Calc,Mins/Iron/Folic (Therapeutic-M Tablet) 9 MG IRON-400 MCG TABLET 1 TAB PO DAILY SUPPLEMENT (Reported) Pantoprazole Sodium 40 MG TABLET.DR 1 TAB PO DAILY GI (Reported) Thiamine HCl (Vitamin B-1) (Unknown Strength) TABLET (Unknown Dose) PO DAILY SUPPLEMENT (Reported) Current Medications: Current Medications Sig/Michelle Start time Last Medication Dose Route Stop Time Status Admin Calcium Gluconate 0 .STK-MED ONE 04/29 0001 DC IV Calcium Gluconate 1 GM ONCE ONE 04/28 2300 DC 04/29 Sodium Chloride 100 ML IV 04/28 2359 0003 Cyanocobalamin/ 1 BAG DAILY 04/30 0900 CAN Thiamine/Pyridoxine IV Dextrose/Water 1,000 ML Cyanocobalamin/ 1 BAG DAILY 04/29 0300 DC 04/29 Thiamine/Pyridoxine IV 0328 Dextrose/Water 1,000 ML Dicyclomine HCl 20 MG 4 TIMES/DAY PRN 04/29 1245 AC 04/29 PO 1713 Enoxaparin Sodium 40 MG DAILY 04/29 1434 DC SC Folic Acid 1 MG DAILY 04/29 1531 AC 04/29 PO 1712 Lactulose 20 GM BID 04/29 0200 DC 04/29 PO 0805 Levothyroxine Sodium 0.125 MG DAILY AC 04/29 0700 DC PO Levothyroxine Sodium 0.2 MG DAILY AC 04/29 0700 DC PO Levothyroxine Sodium 0.175 MG DAILY AC 04/29 0700 AC 04/29 PO 0903 Levothyroxine Sodium 200 MCG ONCE ONE 04/28 2300 DC 04/28 IV 04/28 2301 2356 Lorazepam 1 MG Q6 04/29 1200 AC 04/29 PO 1712 Lorazepam 0 Q1P PRN 04/29 0815 AC 04/29 IV 0851 Magnesium Sulfate 1 GM Q2H 04/29 0915 DC 04/29 Dextrose/Water 100 ML IV 04/29 1314 1442 Multivitamins 1 TAB DAILY 04/29 0900 AC 09/14 PO 0805 Omeprazole 40 MG DAILY AC 04/29 1022 AC 04/29 PO 1210 Ondansetron HCl 4 MG Q6P PRN 04/29 0400 AC 04/29 PO 1713 Potassium Chloride 40 MEQ ONCE ONE 04/29 1300 DC 04/29 PO 04/29 1301 1335 Potassium Chloride 0 .STK-MED ONE 04/29 0458 DC PO Potassium Chloride 40 MEQ ONCE ONE 04/29 0130 DC 04/29 PO 04/29 0131 0602 Thiamine HCl 100 MG DAILY 04/29 1531 AC 04/29 PO 1712 Thiamine HCl 100 MG ONCE ONE 04/29 0300 DC 04/29 Sodium Chloride 50 ML IV 04/29 3447 [id number] Past History Travel History Traveled to [place] past 21 day No Medical History Blood Transfusion Hx: No Neurological: NONE EENT: NONE Cardiovascular: NONE Respiratory: NONE Gastrointestinal: GERD Hepatic: hepatitis C Renal: NONE Musculoskeletal: NONE Psychiatric: alcohol dependence, opioid dependence Endocrine: hypothyroidism Blood Disorders: NONE Cancer(s): hodgkins lymphoma Surgical History Surgical History: 1 Psychosocial History Where Do You Live? 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 Exam & Diagnostic Data Vital Signs and I&O Vital Signs Date Time Temp Pulse Resp B/P B/P Pulse O2 O2 Flow FiO2 Mean Ox Delivery Rate 04/29 1350 98.4 67 20 102/68 97 Room Air 04/29 0645 98.2 67 18 102/65 96 Room Air 04/29 0107 98.1 70 18 92/73 96 Room Air 04/29 0042 97.7 66 20 104/56 04/29 0041 97.7 66 20 104/56 99 Room Air 04/28 2240 98.5 68 18 103/70 04/28 2202 98.5 68 18 103/70 95 Room Air 04/28 1953 97 Room Air 04/28 1945 98.4 88 18 118/70 95 Room Air Intake & Output 04/29 1600 04/29 0400 04/28 0400 04/27 1600 04/27 0400 Intake Total 1275 Output Total 350 Balance 925 Intake, IV 825 Intake, Oral 450 Number 1 Bowel Movements Output, Urine 350 Patient 135 lb 136 lb Weight Weight Bed scale Measurement Method Results Pertinent Lab Results: Laboratory Tests 04/29 04/29 04/29 1418 1400 0605 Chemistry Sodium (137 - 145 mmol/L) Cancelled 139 Potassium (3.5 - 5.1 mmol/L) Cancelled 3.6 Chloride (98 - 107 mmol/L) Cancelled 97 L Carbon Dioxide (22 - 30 mmol/L) Cancelled 33 H Anion Gap (5 - 16) Cancelled 10 BUN (9 - 20 mg/dL) Cancelled 4 L Creatinine (0.7 - 1.2 mg/dL) Cancelled 0.6 L Estimated GFR (>60 ml/min) > 60 BUN/Creatinine Ratio (7 - 25 %) Cancelled 6.7 L Phosphorus (2.5 - 4.5 mg/dL) 4.2 Magnesium (1.6 - 2.3 mg/dL) Cancelled 0.7 *L Total Bilirubin (0.2 - 1.3 mg/dL) 1.6 H Direct Bilirubin (< 0.4 mg/dL) 0.9 H AST (17 - 59 U/L) 226 H ALT (21 - 72 U/L) 71 Alkaline Phosphatase (< 127 U/L) 215 H Total Protein (6.3 - 8.2 g/dL) 7.8 Albumin (3.5 - 5.0 g/dL) 3.4 L Lipase (23 - 300 U/L) 215 Vitamin B12 (239 - 931 pg/mL) > 1000 H Folate (2.76 - 20.0 ng/mL) 6.2 Free T4 (0.64 - 1.79 ng/dL) 1.41 Hematology CBC w Diff NO MAN DIFF REQ WBC (4.8 - 10.8 /CUMM) 5.8 RBC (4.70 - 6.10 /CUMM) 3.74 L Hgb (14.0 - 18.0 G/DL) 12.2 L Hct (42 - 52 %) 36.3 L MCV (80.0 - 94.0 FL) 97.1 H MCH (27.0 - 31.0 PG) 32.7 H MCHC (33.0 - 37.0 G/DL) 33.6 RDW (11.5 - 14.5 %) 16.9 H Plt Count (130 - 400 /CUMM) 82 L MPV (7.4 - 10.4 FL) 9.5 Gran % (42.2 - 75.2 %) 68.9 Lymphocytes % (20.5 - 51.1 %) 23.5 Monocytes % (1.7 - 9.3 %) 6.1 Eosinophils % (0 - 5 %) 0.9 Basophils % (0.0 - 2.0 %) 0.6 Absolute Granulocytes (1.4 - 6.5 /CUMM) 4.0 Absolute Lymphocytes (1.2 - 3.4 /CUMM) 1.4 Absolute Monocytes (0.10 - 0.60 /CUMM) 0.4 Absolute Eosinophils (0.0 - 0.7 /CUMM) 0.1 Absolute Basophils (0.0 - 0.2 /CUMM) 0 Toxicology Acetaminophen (10.0 - 30.0 ug/mL) < 10.0 L 04/28 1957 Toxicology Urine Opiates Screen (>2000 NG/ML) > 4000.00 H Methadone Screen (>300 NG/ML) > 735 H Barbiturate Screen (>200 NG/ML) < 60 Ur Phencyclidine Scrn (>25 NG/ML) 6.30 Amphetamines Screen (>1000 NG/ML) < 100 U Benzodiazepines Scrn (>200 NG/ML) < 85 Urine Cocaine Screen (>300 NG/ML) < 50 Urine Cannabis Screen (>50 NG/ML) > 80.00 H Urines Urine Color (YEL,AMB,STR) YEL Urine Clarity (CLEAR) CLEAR Urine pH (5.0 - 8.0) 7.0 Ur Specific [place] (1.001 - 1.035) <= 1.005 Urine Protein (NEG,<30 MG/DL) NEG Urine Ketones (NEG) NEG Urine Nitrite (NEG) NEG Urine Bilirubin (NEG) NEG Urine Urobilinogen (0.1 - 1.0 EU/dl) 2.0 H Ur Leukocyte Esterase (NEG) NEG Ur Microscopic EXAM NOT REQUIRED Urine Hemoglobin (NEG) NEG Urine Glucose (N MG/DL) NEG 04/28 1954 Chemistry Sodium (137 - 145 mmol/L) 140 Potassium (3.5 - 5.1 mmol/L) 3.4 L Chloride (98 - 107 mmol/L) 99 Carbon Dioxide (22 - 30 mmol/L) 33 H Anion Gap (5 - 16) 8 BUN (9 - 20 mg/dL) 3 L Creatinine (0.7 - 1.2 mg/dL) 0.6 L Estimated GFR (>60 ml/min) > 60 BUN/Creatinine Ratio (7 - 25 %) 5.0 L Glucose (65 - 99 mg/dL) 69 Calcium (8.4 - 10.2 mg/dL) 7.4 L Total Bilirubin (0.2 - 1.3 mg/dL) 2.0 H AST (17 - 59 U/L) 231 H ALT (21 - 72 U/L) 76 H Alkaline Phosphatase (< 127 U/L) 202 H Ammonia (9 - 30 umol/L) 44 H Total Protein (6.3 - 8.2 g/dL) 8.1 Albumin (3.5 - 5.0 g/dL) 3.5 Globulin (1.9 - 4.2 gm/dL) 4.6 H Albumin/Globulin Ratio (1.1 - 2.2 %) 0.8 L Free T4 (0.64 - 1.79 ng/dL) 0.73 Total T3 (0.97 - 1.69 ng/mL) 0.68 L TSH &T3 &Free T4 Intrp (0.27 - 4.20 uIU/mL) 44.900 H Coagulation PT (9.4 - 12.5 SEC) 19.0 H INR (0.90 - 1.17) 1.73 H APTT (25 - 37 SEC) 41 H Hematology CBC w Diff NO MAN DIFF REQ WBC (4.8 - 10.8 /CUMM) 7.1 RBC (4.70 - 6.10 /CUMM) 3.67 L Hgb (14.0 - 18.0 G/DL) 11.7 L Hct (42 - 52 %) 35.5 L MCV (80.0 - 94.0 FL) 96.7 H MCH (27.0 - 31.0 PG) 32.0 H MCHC (33.0 - 37.0 G/DL) 33.1 RDW (11.5 - 14.5 %) 16.6 H Plt Count (130 - 400 /CUMM) 82 L MPV (7.4 - 10.4 FL) 9.0 Gran % (42.2 - 75.2 %) 73.4 Lymphocytes % (20.5 - 51.1 %) 20.2 L Monocytes % (1.7 - 9.3 %) 5.9 Eosinophils % (0 - 5 %) 0.3 Basophils % (0.0 - 2.0 %) 0.2 Absolute Granulocytes (1.4 - 6.5 /CUMM) 5.2 Absolute Lymphocytes (1.2 - 3.4 /CUMM) 1.4 Absolute Monocytes (0.10 - 0.60 /CUMM) 0.4 Absolute Eosinophils (0.0 - 0.7 /CUMM) 0 Absolute Basophils (0.0 - 0.2 /CUMM) 0 Toxicology Serum Alcohol (<10 MG/DL) 262.0 Imaging/Other Studies: 1. Clinical cirrhosis in this patient with alcohol abuse, substance abuse, and hepatitis C (thrombocytopenia, coagulopathy, ascites). Probable superimposed alcoholic hepatitis. 2. Abdominal distention/pain, likely secondary to ascites, and narcotic withdrawal. Rule out peritonitis, alcoholic gastritis, etc. Recommendations * Vitamin K 10 mg subcutaneous for 2 days, and follow INR * No corticosteroids at this time * Daily CBC, CMP * Magnesium repletion. Stop lactulose; resultant diarrhea will continue to contribute to hypomagnesemia. * Consideration for diagnostic paracentesis (discussed with radiology) Assessment/Plan Consult Acknowledgment - Thank you for your consult request.
[2018-04-30 07:34] VITALS: BP 101/68
[2018-04-30 08:00] VITALS: BP 101/68
[2018-04-30 08:16] LABS: ABSOLUTE BASOPHIL COUNT 0.1 /CUMM (0.0-0.2); ABSOLUTE EOSINOPHIL COUNT 0.1 /CUMM (0.0-0.7); ABSOLUTE GRANULOCYTE CT 4.2 /CUMM (1.4-6.5); ABSOLUTE LYMPH COUNT 1.1 /CUMM (1.2-3.4); ABSOLUTE MONOCYTE COUNT 0.3 /CUMM (0.10-0.60); EOSINOPHIL % 1.2 % (0-5); GRANULOCYTE % 72.7 % (42.2-75.2); MEAN CORPUSCULAR HGB 32.6 PG (27.0-31.0); MEAN CORPUSCULAR HGB CONC 33.3 G/DL (33.0-37.0); MEAN CORPUSCULAR VOLUME 98.2 FL (80.0-94.0); MEAN PLATELET VOLUME 9.5 FL (7.4-10.4); RBC DISTRIBUTION WIDTH 16.3 % (11.5-14.5); RED BLOOD CELL CT 3.67 /CUMM (4.70-6.10); WHITE BLOOD CELL COUNT 5.7 /CUMM (4.8-10.8)
--- NOTE | 2018-04-30 09:22 | PN- Housestaff ---
Maximo Zaman 04/30/18 09: Subjective Follow-up For: decompensated hepatitis alcoholic cirrhosis alcohol withdrawl metabolic acidosis hypokalemia Subjective: patient was seen and examined today. He continues to be in the same state of health. he was very drowasy and complained of body pains. Review of Systems Constitutional: Reports: see HPI. Objective Last 24 Hrs of Vital Signs/I&O Vital Signs Date Time Temp Pulse Resp B/P B/P Pulse O2 O2 Flow FiO2 Mean Ox Delivery Rate 04/30 1600 98.2 83 18 104/73 04/30 1600 94 Room Air 04/30 1430 98.2 83 18 73 94 Room Air 04/30 0800 98.3 81 18 101/68 04/30 0800 96 Room Air 04/30 0734 98.3 81 18 96 04/29 2210 98.5 70 18 94/ 94 Room Air Intake & Output 04/30 1600 04/30 0800 04/30 0000 Intake Total 610 320 300 Output Total 300 250 Balance 310 320 50 Intake, IV 10 200 300 Intake, Oral 600 120 Output, Urine 300 250 Patient 136 lb 136 lb Weight Physical Exam General Appearance: Alert, Oriented X3, Cooperative, No Acute Distress Cardiovascular: Regular Rate, No Murmurs Lungs: Clear to Auscultation, Normal Air Movement Abdomen: Normal Bowel Sounds, Soft, No Tenderness, No Hepatospenomegaly, No Masses Neurological: Normal Speech, Strength at 5/5 X4 Ext, Normal Tone, Sensation Intact Extremities: No Clubbing, No Cyanosis, No Edema, Normal Pulses, No Tenderness/ Swelling Current Medications: Current Medications Sig/Michelle Start time Last Medication Dose Route Stop Time Status Admin Dicyclomine HCl 20 MG 4 TIMES/DAY PRN 04/29 1245 AC 04/29 PO 1713 Folic Acid 1 MG DAILY 04/29 1531 AC 04/30 PO 0823 Levothyroxine Sodium 0.175 MG DAILY AC 04/29 0700 AC 04/30 PO 0527 Lorazepam 1 MG Q8 04/30 1400 AC 04/30 PO 2130 Lorazepam 1 MG Q6 04/29 1200 DC 04/30 PO 0527 Lorazepam 0 Q1P PRN 04/29 0815 AC 04/30 IV 1126 Magnesium Sulfate 1 GM Q2H 04/30 0100 DC 04/30 Dextrose/Water 100 ML IV 04/30 0459 0413 Multivitamins 1 TAB DAILY 04/29 0900 AC 04/30 PO 0822 Omeprazole 40 MG DAILY AC 04/29 1022 AC 04/30 PO 0527 Ondansetron HCl 4 MG Q6P PRN 04/29 0400 04/30 PO 1349 Phytonadione 10 MG DAILY 04/30 1112 DC 04/30 PO 1345 Phytonadione 10 MG ONCE ONE 04/30 0030 DC 04/30 SC 04/30 0031 0041 Potassium Chloride 10 MEQ ONCE ONE 04/30 0015 DC 04/30 PO 04/30 0016 0040 Sucralfate 1,000 MG 4 TIMES/DAY 04/30 1847 AC 04/30 PO 2015 Thiamine HCl 100 MG DAILY 04/29 1531 04/30 PO 08 Last 24 Hrs of Lab/Iain Results Last 24 Hrs of Labs/Mics: Laboratory Tests 04/30/18 0930: PT 19.5 H, INR 1.78 H 04/30/18 0635: Anion Gap 5, Estimated GFR > 60, BUN/Creatinine Ratio 7.1, Magnesium 2.0, Lipase 190, CBC w Diff NO MAN DIFF REQ, RBC 3.67 L, MCV 98.2 H, MCH 32.6 H, MCHC 33.3, RDW 16.3 H, MPV 9.5, Gran % 72.7, Lymphocytes % 19.0 L, Monocytes % 6.1, Eosinophils % 1.2, Basophils % 1.0, Absolute Granulocytes 4.2, Absolute Lymphocytes 1.1 L, Absolute Monocytes 0.3, Absolute Eosinophils 0.1, Absolute Basophils 0.1 Assessment/Plan Assessment: patient is 47 yo male with a PMH- substance use disorder including alcohol, opioid, heroine, methadone, cocaine presented to the ER with icterus and abdominal distension. CT abd showed hepatic steatosis. a/p 1) substance abuse disroder- CIWA scoring has been 0-5 today and ATivan taper Q8 psych consulted' 2)Alcoholic cirrhosis- - Rule out SBP - Decompensated cirrhosis along with ascites, portal hypertension, high ammonia level, evidence of hepatocellular disease on the CT scan of the abdomen untreated hep C - consider paracentesis on wednesday Severe hypothyroidism- continue home dose of synthroid, will consult endocrine Hypokalemia -3.4- supplement K and Mg, monitor BEP supratherapeutic INR -give Vitamin K PO, monitor INR. other- cbc, BMP Problem List: 1. Alcohol dependence with intoxication 2. Hepatitis C virus infection 3. Hypothyroidism in adult Pain Ratin Pain Location: nnone Pain Goal: Remain pain free Pain Plan: as discussed Tomorrow's Labs & Rationales: stone Swapna Ibrahim 04/30/18 1215: Attending MD Review Statement Attending Statement Attending MD Statement: examined this patient, discuss w/resident/PA/[employer], agreed w/resident/PA/[employer], discussed with family, reviewed EMR data (avail), discussed with nursing, discussed with case mgmt, reviewed images, amended to note Attending Assessment/Plan: Treat withdrawal with Ativan/MVI/Thiamine/folate for EtOH and Clonidine, Bentyl Hydroxyzine, Baclofen for opioids. Pateint confortably sleeping in bed, no acute distress. Follow GI recommendations.
[2018-04-30 09:55] LABS: PLATELET COUNT 77 /CUMM (130-400)
[2018-04-30 10:04] LABS: PT 19.5 SEC (9.4-12.5)
--- NOTE | 2018-04-30 12:40 | PN- Gastroenterology ---
Assessment/Plan GI Assessment/Recommendations: 1. Clinical cirrhosis (supported by imaging) in this patient with alcohol abuse , substance abuse, and hepatitis C (thrombocytopenia, coagulopathy, ascites). Probable superimposed alcoholic hepatitis. 2. Abdominal distention/pain, likely secondary to ascites, and narcotic withdrawal. The patient believes that his symptoms are related to methadone cessation. Rule out peritonitis, alcoholic gastritis, etc. Recommendations * Continue vitamin K * No corticosteroids at this time * Daily CBC, CMP INR * Magnesium repletion. * Consideration for diagnostic paracentesis (discuss with radiology) * Sucralfate 1 g by mouth 4 times a day (prior to meals, bedtime) Subjective Subjective: Continued abdominal pain. Nausea without vomiting. Objective Vital Signs and I&Os Vital Signs Date Time Temp Pulse Resp B/P B/P Pulse O2 O2 Flow FiO2 Mean Ox Delivery Rate 04/30 0800 98.3 81 18 101/68 04/30 0800 96 Room Air 04/30 0734 98.3 81 18 101/68 96 04/29 2210 98.5 70 18 94/68 94 Room Air 04/29 1600 98.3 82 18 154/74 04/29 1350 98.4 67 20 102/68 97 Room Air Intake & Output 04/30 1600 04/30 0400 04/29 1600 04/29 0400 04/28 1600 04/28 0400 Intake Total 724 043 2213 Output Total 250 350 Balance 320 50 925 Intake, IV 200 300 825 Intake, Oral 120 450 Number 1 Bowel Movements Output, Urine 250 350 Patient 136 lb 135 lb 136 lb Weight Weight Bed scale Measurement Method Physical Exam: Alert and oriented. Sclera anicteric. Abdomen mildly distended, tender. Current Medications: Current Medications Sig/Michelle Start time Last Medication Dose Route Stop Time Status Admin Cyanocobalamin/ 1 BAG DAILY 04/30 09 CAN Thiamine/Pyridoxine IV Dextrose/Water 1,000 ML Dicyclomine HCl 20 MG 4 TIMES/DAY PRN 04/29 1245 AC 04/29 PO 1713 Enoxaparin Sodium 40 MG DAILY 04/29 1434 DC SC Folic Acid 1 MG DAILY 04/29 1531 AC 04/30 PO 0823 Lactulose 20 GM BID 04/29 0200 DC 04/29 PO 0805 Levothyroxine Sodium 0.175 MG DAILY AC 04/29 0700 AC 04/30 PO 0527 Lorazepam 1 MG Q8 04/30 1400 AC PO Lorazepam 1 MG Q6 04/29 1200 DC 04/30 PO 0527 Lorazepam 0 Q1P PRN 04/29 0815 AC 04/30 IV 1126 Magnesium Sulfate 1 GM Q2H 04/30 0100 DC 04/30 Dextrose/Water 100 ML IV 04/30 0459 0413 Magnesium Sulfate 1 GM Q2H 04/29 0915 DC 04/29 Dextrose/Water 100 ML IV 04/29 1314 1442 Multivitamins 1 TAB DAILY 04/29 0900 AC 04/30 PO 0822 Omeprazole 40 MG DAILY AC 04/29 1022 AC 04/30 PO 0527 Ondansetron HCl 4 MG Q6P PRN 04/29 0400 AC 04/30 PO 0823 Patient Medication 1 ED ONE ONE 04/29 2015 NE Teaching ED 04/29 2016 Phytonadione 10 MG DAILY 04/30 1112 AC PO Phytonadione 10 MG ONCE ONE 04/30 0030 DC 04/30 SC 04/30 0031 0041 Potassium Chloride 10 MEQ ONCE ONE 04/30 0015 DC 04/30 PO 04/30 0016 0040 Potassium Chloride 40 MEQ ONCE ONE 04/29 1300 DC 04/29 PO 04/29 1301 1335 Thiamine HCl 100 MG DAILY 04/29 1531 AC 04/30 PO 0822 Results Pertinent Lab Results: Laboratory Tests 04/30 04/30 04/29 0930 0635 1930 Chemistry Sodium (137 - 145 mmol/L) 134 L 135 L Potassium (3.5 - 5.1 mmol/L) 4.0 3.7 Chloride (98 - 107 mmol/L) 95 L 96 L Carbon Dioxide (22 - 30 mmol/L) 33 H 34 H Anion Gap (5 - 16) 5 6 BUN (9 - 20 mg/dL) 5 L 5 L Creatinine (0.7 - 1.2 mg/dL) 0.7 0.6 L Estimated GFR (>60 ml/min) > 60 > 60 BUN/Creatinine Ratio (7 - 25 %) 7.1 8.3 Phosphorus (2.5 - 4.5 mg/dL) 3.3 Magnesium (1.6 - 2.3 mg/dL) 2.0 1.4 L Lipase (23 - 300 U/L) 190 Coagulation PT (9.4 - 12.5 SEC) 19.5 H INR (0.90 - 1.17) 1.78 H Hematology CBC w Diff NO MAN DIFF REQ WBC (4.8 - 10.8 /CUMM) 5.7 RBC (4.70 - 6.10 /CUMM) 3.67 L Hgb (14.0 - 18.0 G/DL) 12.0 L Hct (42 - 52 %) 36.0 L MCV (80.0 - 94.0 FL) 98.2 H MCH (27.0 - 31.0 PG) 32.6 H MCHC (33.0 - 37.0 G/DL) 33.3 RDW (11.5 - 14.5 %) 16.3 H Plt Count (130 - 400 /CUMM) 77 L MPV (7.4 - 10.4 FL) 9.5 Gran % (42.2 - 75.2 %) 72.7 Lymphocytes % (20.5 - 51.1 %) 19.0 L Monocytes % (1.7 - 9.3 %) 6.1 Eosinophils % (0 - 5 %) 1.2 Basophils % (0.0 - 2.0 %) 1.0 Absolute Granulocytes (1.4 - 6.5 /CUMM) 4.2 Absolute Lymphocytes (1.2 - 3.4 /CUMM) 1.1 L Absolute Monocytes (0.10 - 0.60 /CUMM) 0.3 Absolute Eosinophils (0.0 - 0.7 /CUMM) 0.1 Absolute Basophils (0.0 - 0.2 /CUMM) 0.1 04/29 04/29 04/29 1418 1400 0605 Chemistry Sodium (137 - 145 mmol/L) Cancelled 139 Potassium (3.5 - 5.1 mmol/L) Cancelled 3.6 Chloride (98 - 107 mmol/L) Cancelled 97 L Carbon Dioxide (22 - 30 mmol/L) Cancelled 33 H Anion Gap (5 - 16) Cancelled 10 BUN (9 - 20 mg/dL) Cancelled 4 L Creatinine (0.7 - 1.2 mg/dL) Cancelled 0.6 L Estimated GFR (>60 ml/min) > 60 BUN/Creatinine Ratio (7 - 25 %) Cancelled 6.7 L Phosphorus (2.5 - 4.5 mg/dL) 4.2 Magnesium (1.6 - 2.3 mg/dL) Cancelled 0.7 *L Total Bilirubin (0.2 - 1.3 mg/dL) 1.6 H Direct Bilirubin (< 0.4 mg/dL) 0.9 H AST (17 - 59 U/L) 226 H ALT (21 - 72 U/L) 71 Alkaline Phosphatase (< 127 U/L) 215 H Total Protein (6.3 - 8.2 g/dL) 7.8 Albumin (3.5 - 5.0 g/dL) 3.4 L Lipase (23 - 300 U/L) 215 Vitamin B12 (239 - 931 pg/mL) > 1000 H Folate (2.76 - 20.0 ng/mL) 6.2 Free T4 (0.64 - 1.79 ng/dL) 1.41 Hematology CBC w Diff NO MAN DIFF REQ WBC (4.8 - 10.8 /CUMM) 5.8 RBC (4.70 - 6.10 /CUMM) 3.74 L Hgb (14.0 - 18.0 G/DL) 12.2 L Hct (42 - 52 %) 36.3 L MCV (80.0 - 94.0 FL) 97.1 H MCH (27.0 - 31.0 PG) 32.7 H MCHC (33.0 - 37.0 G/DL) 33.6 RDW (11.5 - 14.5 %) 16.9 H Plt Count (130 - 400 /CUMM) 82 L MPV (7.4 - 10.4 FL) 9.5 Gran % (42.2 - 75.2 %) 68.9 Lymphocytes % (20.5 - 51.1 %) 23.5 Monocytes % (1.7 - 9.3 %) 6.1 Eosinophils % (0 - 5 %) 0.9 Basophils % (0.0 - 2.0 %) 0.6 Absolute Granulocytes (1.4 - 6.5 /CUMM) 4.0 Absolute Lymphocytes (1.2 - 3.4 /CUMM) 1.4 Absolute Monocytes (0.10 - 0.60 /CUMM) 0.4 Absolute Eosinophils (0.0 - 0.7 /CUMM) 0.1 Absolute Basophils (0.0 - 0.2 /CUMM) 0 Toxicology Acetaminophen (10.0 - 30.0 ug/mL) < 10.0 L 04/28 1957 Toxicology Urine Opiates Screen (>2000 NG/ML) > 4000.00 H Methadone Screen (>300 NG/ML) > 735 H Barbiturate Screen (>200 NG/ML) < 60 Ur Phencyclidine Scrn (>25 NG/ML) 6.30 Amphetamines Screen (>1000 NG/ML) < 100 U Benzodiazepines Scrn (>200 NG/ML) < 85 Urine Cocaine Screen (>300 NG/ML) < 50 Urine Cannabis Screen (>50 NG/ML) > 80.00 H Urines Urine Color (YEL,AMB,STR) YEL Urine Clarity (CLEAR) CLEAR Urine pH (5.0 - 8.0) 7.0 Ur Specific [place] (1.001 - 1.035) <= 1.005 Urine Protein (NEG,<30 MG/DL) NEG Urine Ketones (NEG) NEG Urine Nitrite (NEG) NEG Urine Bilirubin (NEG) NEG Urine Urobilinogen (0.1 - 1.0 EU/dl) 2.0 H Ur Leukocyte Esterase (NEG) NEG Ur Microscopic EXAM NOT REQUIRED Urine Hemoglobin (NEG) NEG Urine Glucose (N MG/DL) NEG 04/28 1954 Chemistry Sodium (137 - 145 mmol/L) 140 Potassium (3.5 - 5.1 mmol/L) 3.4 L Chloride (98 - 107 mmol/L) 99 Carbon Dioxide (22 - 30 mmol/L) 33 H Anion Gap (5 - 16) 8 BUN (9 - 20 mg/dL) 3 L Creatinine (0.7 - 1.2 mg/dL) 0.6 L Estimated GFR (>60 ml/min) > 60 BUN/Creatinine Ratio (7 - 25 %) 5.0 L Glucose (65 - 99 mg/dL) 69 Calcium (8.4 - 10.2 mg/dL) 7.4 L Total Bilirubin (0.2 - 1.3 mg/dL) 2.0 H AST (17 - 59 U/L) 231 H ALT (21 - 72 U/L) 76 H Alkaline Phosphatase (< 127 U/L) 202 H Ammonia (9 - 30 umol/L) 44 H Total Protein (6.3 - 8.2 g/dL) 8.1 Albumin (3.5 - 5.0 g/dL) 3.5 Globulin (1.9 - 4.2 gm/dL) 4.6 H Albumin/Globulin Ratio (1.1 - 2.2 %) 0.8 L Free T4 (0.64 - 1.79 ng/dL) 0.73 Total T3 (0.97 - 1.69 ng/mL) 0.68 L TSH &T3 &Free T4 Intrp (0.27 - 4.20 uIU/mL) 44.900 H Coagulation PT (9.4 - 12.5 SEC) 19.0 H INR (0.90 - 1.17) 1.73 H APTT (25 - 37 SEC) 41 H Hematology CBC w Diff NO MAN DIFF REQ WBC (4.8 - 10.8 /CUMM) 7.1 RBC (4.70 - 6.10 /CUMM) 3.67 L Hgb (14.0 - 18.0 G/DL) 11.7 L Hct (42 - 52 %) 35.5 L MCV (80.0 - 94.0 FL) 96.7 H MCH (27.0 - 31.0 PG) 32.0 H MCHC (33.0 - 37.0 G/DL) 33.1 RDW (11.5 - 14.5 %) 16.6 H Plt Count (130 - 400 /CUMM) 82 L MPV (7.4 - 10.4 FL) 9.0 Gran % (42.2 - 75.2 %) 73.4 Lymphocytes % (20.5 - 51.1 %) 20.2 L Monocytes % (1.7 - 9.3 %) 5.9 Eosinophils % (0 - 5 %) 0.3 Basophils % (0.0 - 2.0 %) 0.2 Absolute Granulocytes (1.4 - 6.5 /CUMM) 5.2 Absolute Lymphocytes (1.2 - 3.4 /CUMM) 1.4 Absolute Monocytes (0.10 - 0.60 /CUMM) 0.4 Absolute Eosinophils (0.0 - 0.7 /CUMM) 0 Absolute Basophils (0.0 - 0.2 /CUMM) 0 Toxicology Serum Alcohol (<10 MG/DL) 262.0
[2018-04-30 14:30] VITALS: BP 104/73
[2018-04-30 16:00] VITALS: BP 104/73
[2018-04-30 19:45] VITALS: BP 110/66
[2018-05-01 06:56] VITALS: BP 131/89
[2018-05-01 08:00] VITALS: BP 131/89
--- NOTE | 2018-05-01 09:14 | PN- Housestaff ---
Subjective Follow-up For: Alcoholic hepatitis Ascites Subjective: Seen and examined. Overnight events reported. Patient continues to report chronic lower back pain. CIWA scores running low. Afebrile. Denies chest pain shortness of breath or any urinary symptoms Review of Systems Constitutional: Reports: see HPI. Objective Last 24 Hrs of Vital Signs/I&O Vital Signs Date Time Temp Pulse Resp B/P B/P Pulse O2 O2 Flow FiO2 Mean Ox Delivery Rate 05/01 0800 Room Air 05/01 0800 97.8 87 18 131/89 05/01 0656 97.8 87 18 131/89 95 04/30 1945 98.3 84 16 110/66 93 04/30 1600 98.2 83 18 104/73 04/30 1600 94 Room Air 04/30 1430 98.2 83 18 10473 94 Room Air Intake & Output 05/01 1600 05/01 0800 05/01 0000 Intake Total 120 120 Output Total Balance 120 120 Intake, Oral 120 120 Patient 131 lb Weight Physical Exam General Appearance: Alert, Oriented X3, Cooperative HEENT: Atraumatic Cardiovascular: Normal S1, Normal S2 Lungs: Clear to Auscultation, Normal Air Movement Abdomen: Normal Bowel Sounds, ascites, mild tenderness on palpation Neurological: Normal Speech Extremities: No Edema Current Medications: Current Medications Sig/Michelle Start time Last Medication Dose Route Stop Time Status Admin Dicyclomine HCl 20 MG 4 TIMES/DAY PRN 04/29 1245 AC 04/29 PO 1713 Folic Acid 1 MG DAILY 04/29 1531 AC 05/01 PO 0828 Levothyroxine Sodium 0.175 MG DAILY AC 04/29 0700 AC 05/01 PO 0529 Lidocaine 1 PAT DAILY 05/01 1000 AC 05/01 EXT 1033 Lorazepam 1 MG Q12 05/01 2100 AC PO Lorazepam 1 MG Q8 04/30 1400 DC 05/01 PO 0531 Lorazepam 0 Q1P PRN 04/29 0815 AC 04/30 IV 1126 Multivitamins 1 TAB DAILY 04/29 0900 AC 05/01 PO 0828 Omeprazole 40 MG DAILY AC 04/29 1022 AC 05/01 PO 0529 Ondansetron HCl 4 MG Q6P PRN 04/29 0400 AC 04/30 PO 1349 Phytonadione 10 MG DAILY 05/02 1000 AC PO Phytonadione 10 MG DAILY 04/30 1112 DC 04/30 PO 1345 Sucralfate 1,000 MG 4 TIMES/DAY 04/30 1847 AC 05/01 PO 0827 Thiamine HCl 100 MG DAILY 04/29 1531 AC 05/01 PO 0828 Last 24 Hrs of Lab/Iain Results Last 24 Hrs of Labs/Mics: Laboratory Tests 05/01/18 0840: Anion Gap 4 L, Estimated GFR > 60, BUN/Creatinine Ratio 8.6, Magnesium 1.3 L, Total Bilirubin 3.3 H, Direct Bilirubin 1.8 H, AST 205 H, ALT 69, Alkaline Phosphatase 227 H, Total Protein 7.8, Albumin 3.2 L, PT 19.0 H, INR 1.73 H, CBC w Diff NO MAN DIFF REQ, RBC 3.60 L, MCV 98.3 H, MCH 32.3 H, MCHC 32.9 L, RDW 16.5 H, MPV 9.4, Gran % 80.9 H, Lymphocytes % 11.7 L, Monocytes % 6.4, Eosinophils % 0.6, Basophils % 0.4, Absolute Granulocytes 6.6 H, Absolute Lymphocytes 1.0 L, Absolute Monocytes 0.5, Absolute Eosinophils 0, Absolute Basophils 0 Assessment/Plan Assessment: 47-year-old gentleman with past medical history of polysubstance abuse disorder, alcohol abuse disorder, cirrhosis and GERD The patient is currently being treated and evaluated for following conditions #Alcohol withdrawal Alcohol level 262 last drink vodka before presentation -CIWA protocol -Ativan as per CIAR on paper -Multivitamin folate and thiamine #Alcoholic hepatitis [place] discrimination function, initial value was 36.5 which indicated poor prognosis and he might benefit from glucocorticoid therapy. The very next day his bilirubin improved. GI was consulted and they suggested to monitor off IV steroids for now. Today his total bilirubin is 3.0 -We will follow up with GI regarding the recommendations -We will check lipase just to rule out pancreatitis -Continue to monitor LFTs daily #Underlying cirrhosis with history of untreated hepatitis C and alcoholism History of IV drug abuse resulting in hepatitis C -Not a candidate of treatment at present clinical condition -Will require SPECT scan etc. before initiation of treatment -GI follow-up as an outpatient #Electrolyte abnormalities Hyponatremia in setting of underlying cirrhosis may be complicated by beer portomania -We will manage with fluid restriction Hypomagnesemia in setting of alcohol abuse -Monitor and replete #Supratherapeutic INR s/p vitamin K once given subcutaneously since oral has better absorption was patient was shifted to oral 10 mg once yesterday -Vitamin K 10 mg once oral today -Continue to monitor INR there has been no significant improvement #Abdominal distention secondary to ascites -We will arrange for diagnostic paracentesis with IR on Wednesday -Sucralfate 1 g by mouth 4 times a day (prior to meals, bedtime) -Patient remains afebrile without a white count #Thrombocytopenia In setting of bone marrow suppression secondary to alcohol abuse disorder -Continue to monitor will avoid heparin prophylaxis for DVT #Anemia In setting of increased MCV and MCH most likely secondary to alcohol abuse -Vitamin supplementation #Severe hypothyroidism In setting of noncompliance. he is status post thyroidectomy likely secondary to cancer -We will continue patient's home dose of levothyroxine 175mcg -We will check TSH and freeT4 in the morning #History of Hodgkin's lymphoma (childhood) -status post radiation #History of polysubstance abuse Patient has been kicked off methadone program ON 04/22. Was confirmed from [facility] -Continue to monitor off methadone DVT prophylaxis with Alps only/full code/regular diet Problem List: 1. Alcohol dependence with intoxication Pain Ratin Pain Location: diffuse abd Pain Goal: Pain 4 or less Pain Plan: prn Tomorrow's Labs & Rationales: cbc bep lfts inr
[2018-05-01 09:27] LABS: ABSOLUTE BASOPHIL COUNT 0 /CUMM (0.0-0.2); ABSOLUTE EOSINOPHIL COUNT 0 /CUMM (0.0-0.7); ABSOLUTE GRANULOCYTE CT 6.6 /CUMM (1.4-6.5); ABSOLUTE MONOCYTE COUNT 0.5 /CUMM (0.10-0.60); BASOPHIL % 0.4 % (0.0-2.0); EOSINOPHIL % 0.6 % (0-5); GRANULOCYTE % 80.9 % (42.2-75.2); HEMATOCRIT 35.4 % (42-52); MEAN CORPUSCULAR HGB 32.3 PG (27.0-31.0); MEAN CORPUSCULAR HGB CONC 32.9 G/DL (33.0-37.0); MEAN CORPUSCULAR VOLUME 98.3 FL (80.0-94.0); MEAN PLATELET VOLUME 9.4 FL (7.4-10.4); PLATELET COUNT 88 /CUMM (130-400); RBC DISTRIBUTION WIDTH 16.5 % (11.5-14.5); WHITE BLOOD CELL COUNT 8.1 /CUMM (4.8-10.8)
[2018-05-01 15:06] VITALS: BP 106/63
[2018-05-01 16:00] VITALS: BP 106/63
[2018-05-01 21:20] VITALS: BP 118/84
[2018-05-02] VITALS (7 sets, daily range): BP systolic 74–115; BP diastolic 43–82
--- NOTE | 2018-05-02 05:20 | Event Note ---
Event Note Event Note: S-Was notified by nursing that the patient had a blood pressure of 88/62 early this morning. I saw the patient, who denied light-headedness, dizziness, visual changes, numbness/tingling, chest pain, SOB. He reported headache, which was likely related to ETOH withdrawal. B-The patient's last known blood pressure was 118/84 at 2120. He received an extra 0.5mg of Ativan IV per the CIWA protocol this morning just prior to when I was notified about the hypotension. The patient's pulse was noted to be 75 at the time. A-The patient's blood pressure is likely low due to the dose of ativan, on top of normal nocturnal variations in blood pressure. R-Start Normal Saline IV at 75mL/hour and re-check vitals.
--- NOTE | 2018-05-02 06:56 | PN- Housestaff ---
Salbador Casanova 05/02/18 0656: Subjective Follow-up For: Alcoholic Hepatitis Ascites Subjective: Pt seen and examined at bedside. Blood pressures ran low overnight to 88/54 and IV fluids at 100 were started. Patient has remained afebrile. He has been nauseous and required 0.5mg IV ativan this morning with a CIWA of 9. He has slight tremors in the hand this morning and states he feels chilly. Denies diarrhea or vomiting and significant belly pain. Possible diagnostic paracentesis today. Review of Systems Constitutional: Denies: see HPI. Objective Last 24 Hrs of Vital Signs/I&O Vital Signs Date Time Temp Pulse Resp B/P B/P Pulse O2 O2 Flow FiO2 Mean Ox Delivery Rate 05/02 0653 98.0 75 20 88/62 97 Room Air 05/02 0439 20 88/54 05/01 2120 98.4 95 18 118/84 96 Room Air 05/01 1600 98.0 78 20 106/63 05/01 1506 98.0 78 20 106/63 95 Room Air Intake & Output 05/02 1600 05/02 0800 05/02 0000 Intake Total 195 120 Output Total 50 453 Balance 145 -333 Intake, IV 75 Intake, Oral 120 120 Output, Stool 3 Output, Urine 50 450 Patient 133 lb Weight Weight Bed scale Measurement Method Physical Exam General Appearance: Alert, Oriented X3, Cooperative, Mild Distress Skin: No Rashes Skin Temp/Moisture Exam: Warm/Dry HEENT: Mucous Membr. moist/pink Cardiovascular: Normal S1, Normal S2 Lungs: Clear to Auscultation, Normal Air Movement Abdomen: mild hepatomegaly; tenderness diffuse on palpation; normal bowel sounds Extremities: No Edema Vascular: Normal Pulses Current Medications: Current Medications Sig/Michelle Start time Last Medication Dose Route Stop Time Status Admin Dicyclomine HCl 20 MG 4 TIMES/DAY PRN 04/29 1245 AC 04/29 PO 1713 Folic Acid 1 MG DAILY 04/29 1531 AC 05/01 PO 0828 Levothyroxine Sodium 0.175 MG DAILY AC 04/29 0700 AC 05/02 PO 0450 Lidocaine 1 PAT DAILY 05/01 1000 AC 05/01 EXT 1033 Lorazepam 1 MG Q12 05/01 2100 AC 05/01 PO 2030 Lorazepam 1 MG Q8 04/30 1400 DC 05/01 PO 0531 Lorazepam 0 Q1P PRN 04/29 0815 05/02 IV 0443 Magnesium Sulfate 1 GM Q2H 05/01 1315 DC 05/01 Dextrose/Water 100 ML IV 05/01 1714 1738 Multivitamins 1 TAB DAILY 04/29 0900 AC 05/01 PO 0828 Omeprazole 40 MG DAILY AC 04/29 1022 AC 05/02 PO 0450 Ondansetron HCl 4 MG Q6P PRN 04/29 0400 AC 05/01 PO 1952 Phytonadione 10 MG DAILY 05/02 1000 AC PO 05/02 1001 Sodium Chloride 1,000 ML Q10H 05/02 0700 AC IV 05/02 1700 Sodium Chloride 1,000 ML Q13H 05/02 0530 DC 05/02 IV 0535 Sucralfate 1,000 MG 4 TIMES/DAY 04/30 1847 AC 05/01 PO 2030 Thiamine HCl 100 MG DAILY 04/29 1531 AC 05/01 PO 0828 Last 24 Hrs of Lab/Iain Results Last 24 Hrs of Labs/Mics: Laboratory Tests 05/02/18 0603: Sodium Pending, Potassium Pending, Chloride Pending, Carbon Dioxide Pending, Anion Gap Pending, BUN Pending, Creatinine Pending, BUN/Creatinine Ratio Pending , Total Bilirubin Pending, Direct Bilirubin Pending, AST Pending, ALT Pending, Alkaline Phosphatase Pending, Total Protein Pending, Albumin Pending, PT Pending , INR Pending, CBC w Diff Pending, WBC Pending, RBC Pending, Hgb Pending, Hct Pending, MCV Pending, MCH Pending, MCHC Pending, RDW Pending, Plt Count Pending, MPV Pending 05/01/18 0840: Anion Gap 4 L, Estimated GFR > 60, BUN/Creatinine Ratio 8.6, Magnesium 1.3 L, Total Bilirubin 3.3 H, Direct Bilirubin 1.8 H, AST 205 H, ALT 69, Alkaline Phosphatase 227 H, Total Protein 7.8, Albumin 3.2 L, Lipase 219, PT 19.0 H, INR 1.73 H, CBC w Diff NO MAN DIFF REQ, RBC 3.60 L, MCV 98.3 H, MCH 32.3 H, MCHC 32.9 L, RDW 16.5 H, MPV 9.4, Gran % 80.9 H, Lymphocytes % 11.7 L, Monocytes % 6.4, Eosinophils % 0.6, Basophils % 0.4, Absolute Granulocytes 6.6 H, Absolute Lymphocytes 1.0 L, Absolute Monocytes 0.5, Absolute Eosinophils 0, Absolute Basophils 0 Orders CIWA Score (last 24 hrs): 9 Assessment/Plan Assessment: 47-year-old gentleman with past medical history of polysubstance abuse disorder, alcohol abuse disorder, cirrhosis and GERD. Abnormal CT of abdomen and RUQ ultrasound showing liver is diffusely hyperechoic from steatosis or steatohepatitis, and theliver contour is slightly nodular, which raises suspicion for cirrhosis. Gallbladder contains minimal, mobile sludge + Ascites. 05/02/18: Patient improving symptomatically although required IV fluids for a hypotensive episode overnight. 1L Bolus given today. Possible diagnostic paracentesis as per GI today. Repeat TSH/T4 to follow considering patient has been non-compliant at home with medications including synthroid with consult from endocrinology. Lactic acid normal at 0.8. PROBLEM LIST: 1. Alcoholic Hepatitis/Cirrhosis/Untreated Hep C 2. Alcohol Withdrawal 3. Severe Hypothyroidism 4. Thrombocytopenia 5. Supratherapeutic INR 6. Anemia 7. History of Polysubstance Abuse Alcoholic Hepatitis/Cirrhosis/Untreated Hep C Patient has a history of drinking 2 pints of vodka daily recently with last drink one day prior to this admission. History of untreated hepatitis C. CT abdomen demonstrated: Hepatic hypoattenuation with heterogeneous enhancement, consistent withhepatic steatosis and underlying hepatocellular disease. RUQ of ultrasound: Liver is diffusely hyperechoic from steatosis or steatohepatitis, and theliver contour is slightly nodular, which raises suspicion for cirrhosis. Gallbladder contains minimal, mobile sludge + Ascites. His LFTs were elevated on admission and starting to do downtrend. Total bilirubin is 3.5 from 2.0 on admission. Albumin is 3.1 from 3.5 on admission. * Continue to follow GI Recommendations - possible paracentesis via IR * Sucralfate 1 g by mouth 4 times a day (prior to meals, bedtime); Bentyl 20mg 4 times a day; omeprazole * LFTs monitored daily * Monitor for fevers/leukocytosis Alcohol Withdrawal -Alcohol level 262 with last drink one day prior to admission of vodka. * CIWA protocol - most recent 9 * PRN Ativan discontinued * Multivitamin Folate + Thiamine Severe Hypothyroidism Patient stated he is non-compliant with his synthroid at home. TSH elevated on admission to 44. * Repeat TSH/T4 today: TSH: 16.800; Free T4: 1.90 * Endocrinology consulted today - recommends decreasing synthroid to 0.15 * Follow up AM Cortisol, Testosterone, B12, 25 OH Vitamin D as per Endocrinology Thrombocytopenia * Continue to monitor will avoid heparin prophylaxis for DVT Supratherapeutic INR -Status post vitamin K once given subcutaneously since oral has better absorption was patient was shifted to oral 10 mg once. No significant evidence of bleeding. * Continue to monitor Anemia In setting of increased MCV and MCH most likely secondary to alcohol abuse * Vitamin supplementation History of Polysubstance Abuse Patient has been kicked off methadone program prior to admission. Was confirmed from [facility]. * Continue to monitor off methadone Code Status: Full Code DVT PPx: ALPS given thrombocytopenia Diet: Regular Problem List: 1. Hepatitis C virus infection 2. Hypothyroidism in adult Pain Ratin Pain Location: abdominal pain Pain Goal: Pain 4 or less Pain Plan: as per pain pathway Tomorrow's Labs & Rationales: cbc bep LFTs INR Buck Lopez MD 05/02/18 1425: Attending MD Review Statement Attending Statement Attending MD Statement: examined this patient, discuss w/resident/PA/PUTAWAY DRIVER, agreed w/resident/PA/PUTAWAY DRIVER, reviewed EMR data (avail), discussed with nursing, discussed with case mgmt, amended to note Attending Assessment/Plan: Patient seen and examined. Lying in bed and not in any acute distress. Reported to be hypotensive earlier today with blood pressure in the 70s systolic. This was repeated a few times. 1 L fluid bolus was administered and blood pressure improved to 110s systolic. No diarrhea reported. Hemoglobin level is stable. He does not appear dehydrated clinically. Although his parents present as evidenced by ascites on imaging he does not have significant peripheral edema and ascites is no massive will by clinical exam and radiologic imaging. Recommendations: -Maintenance fluid of normal saline at 100 cc/h. -Conservative management of his transaminitis is likely alcohol induced. -Discontinue as needed Ativan. Complete Ativan taper. -TSH has improved from 44.9-16 simply resuming his home dose of Synthroid. We will continue on this dose. -Mobilize patient as tolerated. -Ascites is reported as small volume by ultrasound. Abdomen is nontender. He is afebrile. He has no leukocytosis. Discuss with IR if there is enough fluid to be safely tapped if not we will continue to monitor patient clinically. -Etiology of his hypotension is likely due to volume depletion. Cortisol level is acceptable. She has no other clinical evidence of infection at present. Hemoglobin level is stable. We will continue to monitor patient clinically.
[2018-05-02 08:36] LABS: ABSOLUTE BASOPHIL COUNT 0 /CUMM (0.0-0.2); ABSOLUTE EOSINOPHIL COUNT 0.1 /CUMM (0.0-0.7); ABSOLUTE GRANULOCYTE CT 7.8 /CUMM (1.4-6.5); ABSOLUTE MONOCYTE COUNT 0.5 /CUMM (0.10-0.60); BASOPHIL % 0.5 % (0.0-2.0); EOSINOPHIL % 0.7 % (0-5); GRANULOCYTE % 82.6 % (42.2-75.2); HEMATOCRIT 34.6 % (42-52); MEAN CORPUSCULAR HGB 33.5 PG (27.0-31.0); MEAN CORPUSCULAR VOLUME 98.6 FL (80.0-94.0); MEAN PLATELET VOLUME 9.9 FL (7.4-10.4); PLATELET COUNT 91 /CUMM (130-400); RBC DISTRIBUTION WIDTH 16.4 % (11.5-14.5); RED BLOOD CELL CT 3.51 /CUMM (4.70-6.10); WHITE BLOOD CELL COUNT 9.5 /CUMM (4.8-10.8)
[2018-05-02 08:52] LABS: PT 18.4 SEC (9.4-12.5)
--- NOTE | 2018-05-02 13:13 | Cons- Endocrinology ---
General Information and HPI Consulting Request Date of Consult: 05/02/18 Requested By: medical team Reason for Consult: management of hypothyroidism Source of Information: patient, old records Exam Limitations: no limitations History of Present Illness: 47 y/o male with complicated past medical history significant for substance use disorder including alcohol, opioid, heroine, methadone and cocaine, hepatitis C, was diagnosed with Hodgkin's lymphoma when he was 13 years old s/p radiation treatment. He underwent thyroid surgery twice ( in 2000 and in 2013) due to some cancer cells. Since then, he was supposed to take Levothyroxine 175 mcg daily. However, he hasn't been compliance with the medication. On 04/28/2018, his TSH was 44.9, free T4 was 0.73 and TT3 was 0.68 when he was admitted to . Since he was admitted, he has been on Levothyroxine 175 mcg daily. On 05/02/2018, repeat TSH was 16.8 and free T4 was 1.90. Allergies/Medications Allergies: Coded Allergies: No Known Allergies (04/28/18) Home Med List: Levothyroxine Sodium (Synthroid) 175 MCG TABLET 1 TAB PO DAILY THYROID ( Reported) Multivit,Calc,Mins/Iron/Folic (Therapeutic-M Tablet) 9 MG IRON-400 MCG TABLET 1 TAB PO DAILY SUPPLEMENT (Reported) Pantoprazole Sodium 40 MG TABLET.DR 1 TAB PO DAILY GI (Reported) Thiamine HCl (Vitamin B-1) (Unknown Strength) TABLET (Unknown Dose) PO DAILY SUPPLEMENT (Reported) Review of Systems Review of Systems Constitutional: Reports: see HPI, malaise. Cardiovascular: Denies: chest pain, palpitations. Respiratory: Denies: short of breath. GI: Reports: see HPI (difficulty swallowing ). Denies: constipation. Skin: Reports: jaundice. Hematologic/Endocrine: Reports: see HPI (fatigue). Past History Travel History Traveled to [place] past 21 day No Medical History Blood Transfusion Hx: No Neurological: NONE EENT: NONE Cardiovascular: NONE Respiratory: NONE Gastrointestinal: GERD Hepatic: hepatitis C Renal: NONE Musculoskeletal: NONE Psychiatric: alcohol dependence, opioid dependence Endocrine: hypothyroidism Blood Disorders: NONE Cancer(s): hodgkins lymphoma Surgical History Surgical History: 1 Psychosocial History Where Do You Live? 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 Exam & Diagnostic Data Last 24 Hrs of Vital Signs/I&O Vital Signs Date Time Temp Pulse Resp B/P B/P Pulse O2 O2 Flow FiO2 Mean Ox Delivery Rate 05/02 1304 78 111/59 05/02 1017 80 74/43 05/02 0653 98.0 75 20 88/62 97 Room Air 05/02 0439 20 88/54 05/01 2120 98.4 95 18 118/84 96 Room Air 05/01 1600 98.0 78 20 106/63 05/01 1506 98.0 78 20 10663 95 Room Air Intake & Output 05/02 1600 05/02 0800 05/02 0000 Intake Total 195 120 Output Total 50 453 Balance 145 -333 Intake, IV 75 Intake, Oral 120 120 Output, Stool 3 Output, Urine 50 450 Patient 133 lb Weight Weight Bed scale Measurement Method Physical Exam General Appearance: alert, awake, cachetic Neck: s/p thyroidectomy Respiratory: lungs clear Cardiovascular: regular rate/rhythm Gastrointestinal: distention (mild) Extremities: no edema Skin: jaundice Labs/Iain Results: Laboratory Tests 05/02 05/02 1133 0603 Chemistry Sodium (137 - 145 mmol/L) 132 L Potassium (3.5 - 5.1 mmol/L) 4.7 Chloride (98 - 107 mmol/L) 95 L Carbon Dioxide (22 - 30 mmol/L) 31 H Anion Gap (5 - 16) 6 BUN (9 - 20 mg/dL) 9 Creatinine (0.7 - 1.2 mg/dL) 0.8 Estimated GFR (>60 ml/min) > 60 BUN/Creatinine Ratio (7 - 25 %) 11.3 Lactic Acid (0.7 - 2.1 mmol/L) 0.8 Total Bilirubin (0.2 - 1.3 mg/dL) 3.5 H Direct Bilirubin (< 0.4 mg/dL) 2.1 H AST (17 - 59 U/L) 175 H ALT (21 - 72 U/L) 62 Alkaline Phosphatase (< 127 U/L) 173 H Total Protein (6.3 - 8.2 g/dL) 7.5 Albumin (3.5 - 5.0 g/dL) 3.1 L Vitamin B12 (239 - 931 pg/mL) Pending 25-OH Vitamin D Total (30 - 100 ng/ml) Pending TSH (0.270 - 4.200 uIU/mL) 16.800 H Free T4 (0.64 - 1.79 ng/dL) 1.90 H Coagulation PT (9.4 - 12.5 SEC) 18.4 H INR (0.90 - 1.17) 1.68 H Hematology CBC w Diff NO MAN DIFF REQ WBC (4.8 - 10.8 /CUMM) 9.5 RBC (4.70 - 6.10 /CUMM) 3.51 L Hgb (14.0 - 18.0 G/DL) 11.8 L Hct (42 - 52 %) 34.6 L MCV (80.0 - 94.0 FL) 98.6 H MCH (27.0 - 31.0 PG) 33.5 H MCHC (33.0 - 37.0 G/DL) 34.0 RDW (11.5 - 14.5 %) 16.4 H Plt Count (130 - 400 /CUMM) 91 L MPV (7.4 - 10.4 FL) 9.9 Gran % (42.2 - 75.2 %) 82.6 H Lymphocytes % (20.5 - 51.1 %) 10.8 L Monocytes % (1.7 - 9.3 %) 5.4 Eosinophils % (0 - 5 %) 0.7 Basophils % (0.0 - 2.0 %) 0.5 Absolute Granulocytes (1.4 - 6.5 /CUMM) 7.8 H Absolute Lymphocytes (1.2 - 3.4 /CUMM) 1.0 L Absolute Monocytes (0.10 - 0.60 /CUMM) 0.5 Absolute Eosinophils (0.0 - 0.7 /CUMM) 0.1 Absolute Basophils (0.0 - 0.2 /CUMM) 0 Assessment/Plan Assessment/Plan 47 y/o male with hx of substances abuse, hepatitis C, Hodgekin's Lymphoma, hypothyroidism s/p thyroid surgeries twice and noncompliance with medications. His TFT was significantly off on admission on 04/28/2018. Over the past 3 days, he has been on levothyroxine 175 mcg daily. Repeat free T4 on 05/02/2018 is higher than the normal range. His TFT has been corrected too fast. I have recommended decreasing Levothyroxine to 150 mcg daily. Repeat TSH, free T4 and TT3 can be done in 3 days to look for a trend. His BP has been low and he has been on pain medications chronically. I have recommended checking am cortisol, am testosterone. In addition, I will recommend checking 25 OH vitamin D and vitamin B12. will follow. Consult Acknowledgment - Thank you for your consult request.
[2018-05-03 02:00] VITALS: BP 110/70
[2018-05-03 06:00] VITALS: BP 107/80
--- NOTE | 2018-05-03 06:26 | PN- Housestaff ---
Salbador Casanova 05/03/18 0626: Subjective Follow-up For: Alcoholic Hepatitis/Cirrhosis Alcohol Abuse/Withdrawal Severe Hypothyroidism Subjective: Pt seen and examined this morning at bedside. Resident speaking to patient at the time. Claims he is ready to leave and has a court date set this morning with his mother here to pick him up. Patient has clear capacity and advised that he would be leaving AGAINST MEDICAL ADVICE. Patient understood the risks of his discharge and and provided with proper referalls and prescriptions to his home pharmacy in [place], [place]. Review of Systems Constitutional: Denies: see HPI. Objective Last 24 Hrs of Vital Signs/I&O Vital Signs Date Time Temp Pulse Resp B/P B/P Pulse O2 O2 Flow FiO2 Mean Ox Delivery Rate 05/03 06 98.3 80 18 107/80 05/03 0600 98.3 80 18 10780 96 Room Air 05/03 0200 98.4 70 18 110/70 05/02 2112 98.6 72 18 112/70 96 Room Air 05/02 1449 68 115/82 05/02 1429 98.0 77 18 98/50 98 Room Air 05/02 1304 78 111/59 05/02 1017 80 74/43 Intake & Output 05/03 1600 05/03 0800 05/03 0000 Intake Total 520 300 Output Total 450 400 Balance 70 -100 Intake, IV 400 Intake, Oral 120 300 Output, Urine 450 400 Patient 131 lb Weight Weight Bed scale Measurement Method Physical Exam General Appearance: Alert, Oriented X3, Cooperative Skin: No Rashes Skin Temp/Moisture Exam: Warm/Dry HEENT: Mucous Membr. moist/pink Cardiovascular: Normal S1, Normal S2 Lungs: Clear to Auscultation, Normal Air Movement Abdomen: Soft, Pain in the RUQ; tender to palpation; no rebound/gaurding Neurological: Strength at 5/5 X4 Ext Extremities: No Edema Vascular: Normal Pulses Current Medications: Current Medications Sig/Michelle Start time Last Medication Dose Route Stop Time Status Admin Dicyclomine HCl 20 MG 4 TIMES/DAY PRN 04/29 1245 DCD 05/03 PO 0525 Folic Acid 1 MG DAILY 04/29 1531 DCD 05/02 PO 1220 Levothyroxine Sodium 0.15 MG DAILY AC 05/03 0700 DCD 05/03 PO 0525 Levothyroxine Sodium 0.175 MG DAILY AC 04/29 0700 DC 05/02 PO 0450 Lidocaine 1 PAT DAILY 05/01 1000 DCD 05/02 EXT 0849 Lorazepam 1 MG DAILY 05/03 0900 DCD PO Lorazepam 1 MG Q12 05/01 2100 DC 05/02 PO 0848 Melatonin 5 MG AT BEDTIME 05/03 2100 DC PO Melatonin 5 MG AT BEDTIME 05/02 2300 DCD 05/02 PO 2251 Melatonin 0 .STK-MED ONE 05/02 2252 DC PO Multivitamins 1 TAB DAILY 04/29 0900 DCD 05/03 PO 0824 Omeprazole 40 MG DAILY AC 04/29 1022 DCD 05/03 PO 0525 Ondansetron HCl 4 MG Q6P PRN 04/29 0400 DCD 05/02 PO 0848 Patient Medication 1 ED ONE ONE 05/02 1330 DC 05/02 Teaching ED 05/02 1331 1339 Phytonadione 10 MG DAILY 05/02 1000 DC 05/02 PO 05/02 1001 0848 Sodium Chloride 1,000 ML BOLUS ONE 05/02 1045 DC 05/02 IV 05/02 1244 1106 Sodium Chloride 500 ML BOLUS ONE 05/02 1045 DC 05/02 IV 05/02 1144 1339 Sodium Chloride 1,000 ML Q10H 05/02 0700 DC 05/02 IV 05/02 1700 1728 Sucralfate 1,000 MG 4 TIMES/DAY 04/30 1847 DCD 05/03 PO 0824 Thiamine HCl 100 MG DAILY 04/29 1531 DCD 05/03 PO 0824 Last 24 Hrs of Lab/Iain Results Last 24 Hrs of Labs/Mics: Laboratory Tests 05/03/18 0610: Sodium Pending, Potassium Pending, Chloride Pending, Carbon Dioxide Pending, Anion Gap Pending, BUN Pending, Creatinine Pending, BUN/Creatinine Ratio Pending , Total Bilirubin Pending, Direct Bilirubin Pending, AST Pending, ALT Pending, Alkaline Phosphatase Pending, Total Protein Pending, Albumin Pending, PT Pending , INR Pending, CBC w Diff Pending, WBC Pending, RBC Pending, Hgb Pending, Hct Pending, MCV Pending, MCH Pending, MCHC Pending, RDW Pending, Plt Count Pending, MPV Pending 05/02/18 1133: Lactic Acid 0.8 Assessment/Plan Assessment: 47-year-old gentleman with past medical history of polysubstance abuse disorder, alcohol abuse disorder, cirrhosis and GERD. Abnormal CT of abdomen and RUQ ultrasound showing liver is diffusely hyperechoic from steatosis or steatohepatitis, and theliver contour is slightly nodular, which raises suspicion for cirrhosis. Gallbladder contains minimal, mobile sludge + Ascites. 05/03: Patient leaving AMA. Understands risks of his discharge and has clear capcitity in his decision. Will be discharged home with proper referrals/ medications accordingly. PROBLEM LIST: 1. Alcoholic Hepatitis/Cirrhosis/Untreated Hep C 2. Alcohol Withdrawal 3. Severe Hypothyroidism 4. Thrombocytopenia 5. Supratherapeutic INR 6. Anemia 7. History of Polysubstance Abuse Alcoholic Hepatitis/Cirrhosis/Untreated Hep C Patient has a history of drinking 2 pints of vodka daily recently with last drink one day prior to this admission. History of untreated hepatitis C. CT abdomen demonstrated: Hepatic hypoattenuation with heterogeneous enhancement, consistent withhepatic steatosis and underlying hepatocellular disease. RUQ of ultrasound: Liver is diffusely hyperechoic from steatosis or steatohepatitis, and theliver contour is slightly nodular, which raises suspicion for cirrhosis. Gallbladder contains minimal, mobile sludge + Ascites. His LFTs were elevated on admission and starting to do downtrend. Total bilirubin is 3.5 from 2.0 on admission. Albumin is 3.1 from 3.5 on admission. Sucralfate 1 g by mouth 4 times a day (prior to meals, bedtime); Bentyl 20mg 4 times a day; omeprazole * Patient left AMA * Advised to follow up outpatient with GI Alcohol Withdrawal -Alcohol level 262 with last drink one day prior to admission of vodka. * CIWA protocol established during stay; patient stable prior to discharge with discontinued PRN Ativan taper * Patient had Multivitamin Folate + Thiamine during his admission * Educated to minimize alcohol intake and the effects on his liver and health Severe Hypothyroidism Patient stated he is non-compliant with his synthroid at home. TSH elevated on admission to 44. * Repeat TSH/T4 today: TSH: 16.800; Free T4: 1.90 * Endocrinology consulted today - recommends decreasing synthroid to 150mcg; advised to follow up with Dr. Hernandez outpatient * Follow up AM Cortisol, Testosterone, B12, 25 OH Vitamin D as per Endocrinology Thrombocytopenia * Continue to monitor will avoid heparin prophylaxis for DVT Supratherapeutic INR -Status post vitamin K once given subcutaneously since oral has better absorption was patient was shifted to oral 10 mg once. No significant evidence of bleeding. * Continue to monitor Anemia In setting of increased MCV and MCH most likely secondary to alcohol abuse * Vitamin supplementation History of Polysubstance Abuse Patient has been kicked off methadone program prior to admission. Was confirmed from [facility]. * Continued to monitor off methadone Code Status: Full Code DVT PPx: ALPS given thrombocytopenia Diet: Regular Problem List: 1. Hypothyroidism in adult 2. Alcohol dependence with intoxication 3. Hepatitis C virus infection Pain Ratin Pain Location: right upper qudrant Pain Goal: Pain 4 or less Pain Plan: as per pain pathway Tomorrow's Labs & Rationales: Left Against Medical Advice Buck Lopez MD 05/03/18 0956: Attending MD Review Statement Attending Statement Attending Statement: discuss w/resident/PA/UNION LABORER, agreed w/resident/PA/UNION LABORER, reviewed EMR data (avail), discussed with nursing, discussed with case mgmt, amended to note Attending Assessment/Plan: Patient left AMA this morning. Vitals were stable at the time of discharge. He was given prescription for a reduced dose of synthroidd per endocrine recommendation and provided with a referral for a PCP. At the time he left AMA he was evaluated by house staff. He was reported to be alert and oriented 3. Was reported to be conversant appropriately. He was given clear information about the risk of leaving the hospital AGAINST MEDICAL ADVICE. He verbalized understanding. He was of clear mentation. He left the medical unit in stable condition.
[2018-05-03] MEDS ORDERED: CARAFATE1 G1 PO ×2 (08:27→10:02)
[2018-05-03] MEDS ORDERED: Bentyl PO (08:27)
[2018-05-03] MEDS ORDERED: PANTOPRAZOLE SO40 M1 PO ×2 (08:27→10:02)
[2018-05-03] MEDS ORDERED: THERAPEUTIC-M1 EAC2 PO (08:27)
--- NOTE | 2018-05-03 08:27 | Patient Discharge Instructions ---
Discharge Instructions General Discharge Information You were seen/treated for: Alcoholic Hepatitis/Cirrhosis Alcohol Abuse/Withdrawal Severe Hypothyroidism Special Instructions: Please follow up with your PCP (Dr. Russell) within 1-2 weeks of discharge. Please follow up with Gastroenterology within 1 week of discharge. Please follow up with Endocrinology (Dr. Díaz) within 1 week of discharge. Return to ED with worsening abdominal pain, nausea, vomting, diarrhea, fevers, chills. Acute Coronary Syndrome Inclusion Criteria At DC or during hospital stay patient has or had the following: ACS DIAGNOSIS No Discharge Core Measures Meds if any: Prescribed or Continued at Discharge Meds if any: NOT Prescribed or Continued at Discharge Congestive Heart Failure Inclusion Criteria At DC or during hospital stay patient has or had the following: CHF DIAGNOSIS No Discharge Core Measures Meds if any: Prescribed or Continued at Discharge Meds if any: NOT Prescribed or Continued at Discharge Cerebrovascular accident Inclusion Criteria At DC or during hospital stay patient has or had the following: CVA/TIA Diagnosis No Discharge Core Measures Meds if any: Prescribed or Continued at Discharge Meds if any: NOT Prescribed or Continued at Discharge Venous thromboembolism Inclusion Criteria VTE Diagnosis No VTE Type NONE VTE Confirmed by (Test) NONE Discharge Core Measures - Per Current guidelines, there needs to be overlap - treatment for the first 5 days of Warfarin therapy. - If discharged on Warfarin prior to 5 days of - overlap therapy, the patient will need to be - assessed for post discharge needs including - *Post discharge parental anticoagulation - *Warfarin and/or parental anticoagulation education - *Follow up date to check INR post discharge At least 5 days overlap therapy as Inpatient No Meds if any: Prescribed or Continued at Discharge Note: Overlap Therapy is Warfarin and Anticoagulant Meds if any: NOT Prescribed or Continued at Discharge
[2018-05-03] MEDS ORDERED: LEVOTHYROXINE150 MCG PO ×2 (08:28→10:02)
--- NOTE | 2018-05-03 09:09 | Event Note ---
Event Note Event Note: left AMA risks thoroughly explained, counselled on extensive follow up pt has capacity provided proper outpatient follow up
[2018-05-03 09:52] LABS: PT 18.9 SEC (9.4-12.5)
[2018-05-03 09:59] LABS: ABSOLUTE BASOPHIL COUNT 0.1 /CUMM (0.0-0.2); ABSOLUTE EOSINOPHIL COUNT 0.1 /CUMM (0.0-0.7); ABSOLUTE GRANULOCYTE CT 6.8 /CUMM (1.4-6.5); ABSOLUTE LYMPH COUNT 1.2 /CUMM (1.2-3.4); ABSOLUTE MONOCYTE COUNT 0.6 /CUMM (0.10-0.60); BASOPHIL % 0.7 % (0.0-2.0); EOSINOPHIL % 0.6 % (0-5); GRANULOCYTE % 77.8 % (42.2-75.2); HEMATOCRIT 34.3 % (42-52); MEAN CORPUSCULAR HGB CONC 33.1 G/DL (33.0-37.0); MEAN CORPUSCULAR VOLUME 99.5 FL (80.0-94.0); MEAN PLATELET VOLUME 9.3 FL (7.4-10.4); PLATELET COUNT 100 /CUMM (130-400); RBC DISTRIBUTION WIDTH 17.2 % (11.5-14.5); RED BLOOD CELL CT 3.45 /CUMM (4.70-6.10); WHITE BLOOD CELL COUNT 8.7 /CUMM (4.8-10.8)
--- NOTE | 2018-05-03 10:34 | Event Note ---
Event Note Event Note: S: was paged by the nurse that patient is trying to leave AMA B: The patient is a 47-year-old gentleman with past medical history of alcohol abuse disorder, hepatic C and treated. Who was admitted for alcohol detox A/P Patient had all his belongings in plastic bag and was ready to walk out. I asked the patient to have a seat. I talked in detail regarding his current clinical situation with his worsening LFTs and total bilirubin. It was not advisable that he leave today. He was alert oriented 3. He understood and verbalized understanding of the risks he is taking which included detoriation of his clinical condition and possible . He has full capacity to make his decisions. The patient said that his mom is waiting for him downstairs so he has to leave as soon as possible. He has a court appearance that 10 Am and he does not want to go into details of that process. He also wants to go to [facility] and get his methadone started around 11 AM because he has been sober for past few days. I asked the patient to give us 15 minutes so that we can get everything in line for him. His discharge will be AGAINST MEDICAL ADVICE but we wanted to provide him medication and a referral for PCP, GI and endocrine for follow-up in future so that he is not lost to follow-up. Patient was discharged on omeprazole, multivitamin and levothyroxine dose adjusted by endocrine. Patient reported that his pharmacy was in [place] and on his request all his medications were transmitted to that pharmacy. He was extensively counseled to return to ED if there is any worsening is in clinical condition. He was also extensively counseled to follow-up with referrals provided and to take his medication as directed. The patient signed AMA paperwork and left even before the morning could begin.
--- NOTE | 2018-05-03 12:48 | PN- Endocrinology ---
Assessment/Plan Endoscopy Assessment: 47 y/o male with hx of substances abuse, hepatitis C, Hodgekin's Lymphoma, hypothyroidism s/p thyroid surgeries twice and noncompliance with medications. His TFT was significantly off on admission on 04/28/2018. Over the past 3 days, he has been on levothyroxine 175 mcg daily. Repeat free T4 on 05/02/2018 is higher than the normal range. His TFT was corrected too fast. Levothyroxine was decreased to 150 mcg daily. His BP was low and he has been on pain medications chronically. His am cortisol was 14, am testosterone was 323. His vitamin B12 was > 1000 and 25 OH vitamin D was 13. However, patient would like to be discharged today and he signed form of AMA. Plan: continue Levothyroxine 150 mcg daily for now; recommend vitamin D supplement; be compliance with thyroid medication; f/u in office after discharge. Subjective Subjective: Patient would like to go home today. Objective Last 24 Hrs of Vital Signs/I&O Vital Signs Date Time Temp Pulse Resp B/P B/P Pulse O2 O2 Flow FiO2 Mean Ox Delivery Rate 05/03 0600 98.3 80 18 107/80 05/03 0600 98.3 80 18 107/80 96 Room Air 05/03 0200 98.4 70 18 110/70 05/02 2112 98.6 72 18 112/70 96 Room Air 05/02 1449 68 115/82 05/02 1429 98.0 77 18 98/50 98 Room Air 05/02 1304 78 111/59 Intake & Output 05/03 1600 05/03 0800 05/03 0000 Intake Total 520 300 Output Total 450 400 Balance 70 -100 Intake, IV 400 Intake, Oral 120 300 Output, Urine 450 400 Patient 131 lb Weight Weight Bed scale Measurement Method Results Pertinent Lab/Iain Results: Laboratory Tests 05/03 0610 Chemistry Sodium (137 - 145 mmol/L) 134 L Potassium (3.5 - 5.1 mmol/L) 4.0 Chloride (98 - 107 mmol/L) 100 Carbon Dioxide (22 - 30 mmol/L) 25 Anion Gap (5 - 16) 9 BUN (9 - 20 mg/dL) 9 Creatinine (0.7 - 1.2 mg/dL) 0.7 Estimated GFR (>60 ml/min) > 60 BUN/Creatinine Ratio (7 - 25 %) 12.9 Total Bilirubin (0.2 - 1.3 mg/dL) 2.9 H Direct Bilirubin (< 0.4 mg/dL) 1.8 H AST (17 - 59 U/L) 144 H ALT (21 - 72 U/L) 60 Alkaline Phosphatase (< 127 U/L) 183 H Total Protein (6.3 - 8.2 g/dL) 7.3 Albumin (3.5 - 5.0 g/dL) 2.9 L Coagulation PT (9.4 - 12.5 SEC) 18.9 H INR (0.90 - 1.17) 1.72 H Hematology CBC w Diff NO MAN DIFF REQ WBC (4.8 - 10.8 /CUMM) 8.7 RBC (4.70 - 6.10 /CUMM) 3.45 L Hgb (14.0 - 18.0 G/DL) 11.4 L Hct (42 - 52 %) 34.3 L MCV (80.0 - 94.0 FL) 99.5 H MCH (27.0 - 31.0 PG) 33.0 H MCHC (33.0 - 37.0 G/DL) 33.1 RDW (11.5 - 14.5 %) 17.2 H Plt Count (130 - 400 /CUMM) 100 L MPV (7.4 - 10.4 FL) 9.3 Gran % (42.2 - 75.2 %) 77.8 H Lymphocytes % (20.5 - 51.1 %) 13.7 L Monocytes % (1.7 - 9.3 %) 7.2 Eosinophils % (0 - 5 %) 0.6 Basophils % (0.0 - 2.0 %) 0.7 Absolute Granulocytes (1.4 - 6.5 /CUMM) 6.8 H Absolute Lymphocytes (1.2 - 3.4 /CUMM) 1.2 Absolute Monocytes (0.10 - 0.60 /CUMM) 0.6 Absolute Eosinophils (0.0 - 0.7 /CUMM) 0.1 Absolute Basophils (0.0 - 0.2 /CUMM) 0.1
--- NOTE | 2018-05-03 13:52 | Discharge Summary ---
Visit Information Visit Dates Admission Date: 04/28/18 Discharge Date: 05/03/18 Hospital Course Course Attending Physician: Buck Lopez MD Primary Care Physician: Unknown Hospital Course: History/Hospital Course: Patient is a 47-year-old male presented with chief complaints of weakness and abdominal pain. Patient has a history of substance use disorder including alcohol, opioid, heroine, methadone, cocaine and was following the [facility] [place] in [place], [place]. His last drink was just before arrival. He was also complaining of distention abdomen, yellow discoloration of the eye and generalized weakness. He was not given methadone since 4 days because he was drinking alcohol. He is on 100 mg of methadone daily. Drinking alcohol since 5 years as he was stressing out. He drinks around 1-2 pins of vodka daily. Recently his amount of alcohol intake has been increased. He underwent multiple detox with failed. Claimed to have had episode of seizure due to alcohol use in 2016. Diagnosis of Hepatitis C which affected his liver. He was not treated with Harvoni as he is continued to drink alcohol. He had upper GI endoscopy in the past but denies for any esophageal varices. History of Hodgkins lymphoma treated with radiotherapy leading to loss of the muscle mass especially in the neck and the face. He did had thyroidectomy in 1999. He was having hypothyroidism after that and currently on Synthyroid 175 mcg daily. He is noncompliant with the medication and has not been taken since last couple of days. His primary care provider is at [facility]. History of smoking -he was smoking since last 30 years around 1-1/2 pack per day. He had multiple failed attempts to quit. He was incarcerated multiple times because of the rubbing and drug abuse. EMERGENCY DEPARTMENT: Blood workup-hemoglobin 11.7, hematocrit 35.5, platelet count 82,000, MCV 96.7, serum sodium 140, potassium 3.4, chloride 99, [id number], anion gap 8, BUN 3, creatinine 0.6, glucose 69, calcium 7.4, total bilirubin 2.0, AST 231, ALT 76 , alkaline phosphatase 202, ammonia 44, TSH 44.90, total T3 0.68, urine analysis -ketones negative, U tox-opiates, methadone, cannabis positive. Serum alcohol level 262. CT scan of abdomen and pelvis- 1. Hepatic hypoattenuation with heterogeneous enhancement, consistent with hepatic steatosis and underlying hepatocellular disease. Ill-defined regions of hypoattenuation around the gallbladder fossa most likely correspond to areas of more pronounced focal fatty infiltration. History of hepatitis C infection, consider follow-up MRI with and without contrast for more definitive characterization on a nonemergent basis. 2. Small [id number] volume of simple appearing intraperitoneal free fluid , most notably in a perihepatic and central pelvic distribution confidentially due to portal hypertension. 3. Diffuse colonic wall thickening, most pronounced the right hemicolon, potentially due to portal hypertension. Infectious colitis or spontaneous bacterial peritonitis can also produce this appearance. RUQ ABDOMINAL US IMPRESSION: - Liver is diffusely hyperechoic from steatosis or steatohepatitis, and the liver contour is slightly nodular, which raises suspicion for cirrhosis. However, no focal lesions are seen. - Gallbladder contains minimal, mobile sludge. - Ascites GENERAL MEDICINE: PROBLEM LIST: Abdominal Pain Most likely multifactorial due to alcoholic gastritis, hepatitis (alcoholic and Hep C), ascites. Admit team felt not likely to be SBP, patients clinical picture does not appear to be infectious. GI input regarding potential paracentesis. Lipase/amylase added to admit labs. Trend LFT's. #Gastritis- as above, the patient presents with vomiting, etc. Plan: PPI as noted. Zofran for nausea, will follow. #EtOH/Opioid Withdrawal- the admit note suggested restart Methadone, however the patient was discharged from his Methadone clinic 04/24 and thus unable to return. He has been off of Methadone since 04/24, so no need for taper. Suspect with positive urine that he has taken street opioids. Plan: No Methadone. Would treat with usual withdrawal meds- Ativan/MVI/Thiamine/ folate for EtOH and Clonidine, Bentyl Hydroxyzine, Baclofen for opioids. #Cirrhosis/Hep C/Abnormal LFT's- abd US showing some sludge in GP. No encephalopathy noted. Most likely secondary to EtOH hepatitis. Plan: Would trend LFT's. As above, consider paracentesis depending on GI follow- up. #Hypomagnesemia- secondary to poor nutrition. Plan: Replete and follow. #Hypothyroid- secondary to prior thyroidectomy for ca. Has been non-compliant. Not contributing to current symptoms. Plan: Would start his usual dose Levothyroxine 175 mcg daily and check Free T4. Would re-check Free T4 in 4-5 days and f/u TSH in 6 weeks. #Anemia/Thrombocytopenia- secondary to alcohol. No clinical bleeding at present. Plan: Will trend H/H and count. No heparin/Lovenox. Code Status: Full Code Allergies: Coded Allergies: No Known Allergies (04/28/18) Discharge Instructions Medications at Discharge Discharge Medications: Stop taking the following medications: Levothyroxine Sodium (Synthroid) 175 MCG TABLET ORAL DAILY Thiamine HCl (Vitamin B-1) (Unknown Strength) TABLET ORAL DAILY Continue taking these medications: Multivit,Calc,Mins/Iron/Folic (Therapeutic-M Tablet) 9 MG IRON-400 MCG TABLET 1 Tablet ORAL DAILY Qty = 30 Comments: . This prescription has been renewed Start taking the following new medications: Sucralfate (Carafate) 1 GRAM TABLET 1 Tablet ORAL 4 TIMES A DAY Qty = 30 No Refills Instructions: . Levothyroxine Sodium (Levothyroxine Sodium) 150 MCG TABLET 1 Tablet ORAL DAILY Qty = 30 No Refills Instructions: . The following medications have been changed: Old: Pantoprazole Sodium (Pantoprazole Sodium) 40 MG TABLET.DR 1 Tablet ORAL DAILY Qty = 30 New: Pantoprazole Sodium (Pantoprazole Sodium) 40 MG TABLET.DR 1 Tablet ORAL DAILY Qty = 30 Instructions: .
== END 2018-05-03 08:50 | disposition left against medical advice (07) | DRG 770 ==
LOC: ERH 18:36 → 2NB 22:47 → ERHI 22:47 → ENRESERV 04-29 00:06 → 2NB 04-29 01:04
PROVIDERS: Emergency Medicine; Internal Medicine; Internal Medicine Adolescent Medicine; Physical Medicine & Rehabilitation Pain Medicine; Student in an Organized Health Care Education/Training Program
DX: F10.239 Alcohol dependence with withdrawal, unspecified (principal); Y90.8 Blood alcohol level of 240 mg/100 ml or more; E83.51 Hypocalcemia; F10.229 Alcohol dependence with intoxication, unspecified; F11.229 Opioid dependence with intoxication, unspecified; Z85.71 Personal history of Hodgkin lymphoma; F17.210 Nicotine dependence, cigarettes, uncomplicated; K70.31 Alcoholic cirrhosis of liver with ascites; K76.6 Portal hypertension; K76.0 Fatty (change of) liver, not elsewhere classified; D64.9 Anemia, unspecified; E87.6 Hypokalemia; E87.3 Alkalosis; Z91.14 Patient's other noncompliance with medication regimen; B18.2 Chronic viral hepatitis C; E89.0 Postprocedural hypothyroidism; K21.9 Gastro-esophageal reflux disease without esophagitis; R79.1 Abnormal coagulation profile; Z53.21 Procedure and treatment not carried out due to patient leaving prior to being seen by health care provider; E87.2 Acidosis
CPT/HCPCS: 2NBP; ERO; 36592; 74177; 80307; 81003; 82436; 84403; G0480; J0610; J3101; J3490; J7040; J7060